=== PATIENT | female | born 1975 | race Caucasian/White ===

== ENCOUNTER 2016-08-01 05:37 | Emergency (ER) | payer BC ==
[~2016-08-01] VITALS: Ht 149.9 cm; Wt 56.4 kg
[~2016-08-01 05:37] MED LIST: ALPR0.5T PO; ASPI325T70 PO; CITA20TA9 PO; DEXT20TA2 PO; HYDR-971 PO; NAPR500T3 PO; TEMA15CA PO; TRAM100T PO; VENL150C6 PO; VENL37.5 PO
[2016-08-01] MEDS: ASPIRIN 81 MG TAB.CHEW PO ONE (06:30)
--- NOTE | 2016-08-01 06:38 | PHYS DOC ---
General Chief Complaint: anxiety Stated Complaint: HEAR RACING Time Seen by MD: 06:11 Source: patient Exam Limitations: no limitations Problems: History of Present Illness Initial Comments Pt is 40/F to ED c/o palpitations, chest pain, anxiety. Pt states for the past four days she's had constant palpitations, diffuse anterior chest pressure, feeling as if she cannot catch her breath. She has felt very anxious, states she stopped taking xanax last saturday and has h/o dependence. No seizure history, but wonders if sx related to withdrawal. No n/ v/arm or neck sx/dizziness/edema. No prearrival treatment, pt has had increased recent stressors. No SI/HI denies hallucinations. Timing/Duration: constant (4 days) Severity: moderate Associated Symptoms: chest pain, loss of appetite, malaise, shortness of breath Allergies: Coded Allergies: aripiprazole (Verified Allergy, Intermediate, 03/22/14) bupropion (Verified Allergy, Intermediate, 03/22/14) varenicline (Verified Allergy, Intermediate, 03/22/14) Past Medical History Medical History: CVA/TIA/stroke, other (kidney stones, factor V) Surgical History: other Psychosocial History: anxiety, depression Family History Significant Family History: cancer Social History Smoker: cigarettes Alcohol: none Drugs: none Review of Systems Constitutional: denies chills, denies diaphoresis, denies fever, malaise Respiratory: denies cough, shortness of breathdenies wheezing Cardiovascular: chest paindenies edema, palpitationsdenies syncope Gastrointestinal: denies abdominal pain, denies nausea, denies vomiting Musculoskeletal: denies back pain, denies joint swelling, denies neck pain Psychiatric/Neurological: denies headache, denies numbness, denies paresthesia Hematologic/Lymphatic: see HPI Physical Exam General Appearance: WD/WN, moderate distress (very anxious, tearful) Eyes: bilateral eye EOMI, bilateral eye PERRL, bilateral eye normal inspection Ear, Nose, Throat: hearing grossly normal, normal ENT inspection, normal pharynx Neck: non-tender, supple Respiratory: normal breath sounds, no respiratory distress Cardiovascular: normal peripheral pulses, regular rate, rhythm Gastrointestinal: non tender, soft Back: no CVA tenderness, no vertebral tenderness Extremities: normal range of motion, non-tender, normal inspection, no pedal edema, no calf tenderness 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 no acute ischemic changes CXR: no acute process Labs unremarkable. Sx > 12 hours, CE neg. Likely anxiety as sx resolved with benzos in ED. Nevertheless, she has risk factors and was advised to f/u with her doctor to discuss outpt cardiology eval. She has r/o for ACS, sx resolved with benzos I feel she is stable for discharge and close follow up. She expressed agreement/ understanding with treatment plan. Departure Time of Disposition: 08:54 Disposition: 01 HOME, SELF-CARE Diagnosis: Chest discomfort NOS, anxiety Condition: IMPROVED Patient Instructions: Anxiety and Panic Attacks, [id number], Chest Pain ( Nonspecific), [id number] Additional Instructions: Rest, no strenuous activity. Off work today. Rx: xanax 0.25mg #10 Follow up with your doctor this afternoon as scheduled. Return to ED with new or changing symptoms. EPHRAIM MAJANO DO Aug 01, 2016 06:37
[2016-08-01] MEDS: LORAZEPAM 2 MG/ML VIAL IV ONE (06:45)
[2016-08-01 06:52] LABS: BASO % 1 % (0-3); EOS # 0.1 x10^3/uL (0.0-0.7); EOS % 1 % (0-3); HEMATOCRIT 41.1 % (36.0-47.0); HEMOGLOBIN 13.7 g/dL (12.0-15.5); LYMPH # 2.7 x10^3/uL (1.0-4.8); LYMPH % 36 % (24-48); MEAN CORPUSCULAR HEMOGLOBIN 31 pg (25-35); MEAN CORPUSCULAR HGB CONC 33 g/dL (31-37); MEAN CORPUSCULAR VOLUME 93 fL (79-100); MONO # 0.4 x10^3/uL (0.0-1.1); MONO % 5 % (0-9); NEUT # 4.4 x10^3uL (1.8-7.7); NEUT % 58 % (31-73); PLATELET COUNT 262 x10^3/uL (140-400); RED BLOOD COUNT 4.42 x10^6/uL (3.50-5.40); RED CELL DISTRIBUTION WIDTH 13.6 % (11.5-14.5); WHITE BLOOD COUNT 7.6 x10^3/uL (4.0-11.0)
[2016-08-01 07:09] LABS: ALBUMIN 3.9 g/dL (3.4-5.0); ALBUMIN/GLOBULIN RATIO 1.2 (1.0-1.7); CALCIUM 8.7 mg/dL (8.5-10.1); CREATININE 0.8 mg/dL (0.6-1.0); GFR 78.7; POTASSIUM 3.8 mmol/L (3.5-5.1); TOTAL BILIRUBIN 0.4 mg/dL (0.2-1.0); TOTAL PROTEIN 7.1 g/dL (6.4-8.2)
--- NOTE | 2016-08-01 07:52 | EKG ---
[address] [address] Test Date: 2016-08-01 Test Time: 05:50:20 Pat Name: CODY CALABRESE Department: Room: Gender: F Beef Trimmer: : 1975 Requested By: EPHRAIM MAJANO Order Number: [id number] Reading MD: Measurements Intervals [place] Rate: 77 P: 48 SC: 154 QRS: 59 QRSD: 78 T: 51 QT: 362 QTc: 411 Interpretive Statements SINUS RHYTHM QRS(T) CONTOUR ABNORMALITY CONSIDER ANTEROSEPTAL MYOCARDIAL DAMAGE CONSIDER INFERIOR MYOCARDIAL DAMAGE POSSIBLY ABNORMAL ECG RI6.01 Unconfirmed report No previous ECG available for comparison
[2016-08-01] MEDS ORDERED: ALPR0.25 PO (08:56)
--- NOTE | 2016-08-01 09:25 | RAD ---
Portable chest, 08/01/2016: History: Chest pain Comparison is made to a study from 05/28/2016. The heart size and pulmonary vascularity are normal. No pulmonary infiltrates are seen. There is no evidence of pleural fluid. There is a minimal thoracic scoliosis. IMPRESSION: No acute cardiopulmonary abnormality is detected.
[2016-08-01 10:00] VITALS: BP 113/78
== END 2016-08-01 10:00 | disposition home or self-care (01) ==
LOC: ER 05:40
DX: R07.89 Other chest pain (principal); F41.9 Anxiety disorder, unspecified; F17.210 Nicotine dependence, cigarettes, uncomplicated; F32.9 Major depressive disorder, single episode, unspecified; Z86.73 Personal history of transient ischemic attack (TIA), and cerebral infarction without residual deficits; Z87.442 Personal history of urinary calculi; Z88.8 Allergy status to other drugs, medicaments and biological substances
CPT/HCPCS: 36415; 71010; 80053; 80320; 82550; 83690; 83880; 84484; 85027; 85379; 85610; 85730; 93005; 96374; 99285; J2060; G0480

== ENCOUNTER 2016-09-13 15:54 | Emergency (ER) | payer BC ==
[~2016-09-13 15:54] MED LIST changes: +ALPR0.25 PO
[2016-09-13] MEDS ORDERED: IV NORMAL SALINE 1,000ML 1,000 ML IV SCH (16:03)
[2016-09-13] MEDS ORDERED: 0.9 % SODIUM CHLORIDE 10 ML DISP.SYRIN. IV PRN (16:15)
--- NOTE | 2016-09-13 16:34 | PHYS DOC ---
Past History Past Medical History: Anxiety, Depression, Kidney Stones, TIA Additional Past Medical Histor: Migraine HEIN, Memory Loss prior stroke secondary to factor V Leiden Past Surgical History: Hysterectomy, Other Additional Past Surgical Histo: breast augmentation, tummy tuck. Smoking: Less than 1pk/day Alcohol Use: Occasionally (considering about 2 bottles of wine per week) Drug Use: None Adult General Chief Complaint Chief Complaint: RAPID HEART RATE HPI HPI Patient is a pleasant 40-year-old female with a history of anxiety and depression and remote history of suicidal ideation who presents with anxiety and palpitations ongoing for last 8 weeks. Patient had intermittent symptoms for last 8 weeks described as palpitations making her lightheaded with shortness of breath. She admits that she's been very anxious with these episodes and monitor her heart rate via an [place] I watch. She denies any real chest pain with the symptoms but they have become more frequent and increased in duration. She denies any nausea, vomiting, diarrhea, chills, abdominal pain with the symptoms. She describes some periods of blacking out or possibly as she describes seizures intermittently. She's been seen by neurology in the past with a negative EEG. There is nothing associated with her shortness breath and palpitations today she describes no evidence of syncope or near- syncope. Today's episode began while she was on. She denies any trauma at home and a homicidal suicidal ideations at this time. She denies any IV drug use alcohol withdrawal symptoms or recent medications. Review of Systems Review of Systems Constitutional: Denies fever or chills [] Eyes: Denies change in visual acuity, redness, or eye pain [] HENT: Denies nasal congestion or sore throat [] Respiratory: Denies cough or shortness of breath [] Cardiovascular: No additional information not addressed in HPI [] GI: Denies abdominal pain, nausea, vomiting, bloody stools or diarrhea [] : Denies dysuria or hematuria [] Musculoskeletal: Denies back pain or joint pain [] Integument: Denies rash or skin lesions [] Neurologic: She feels generally weak with no clear sensory changes Endocrine: Denies polyuria or polydipsia [] Current Medications Current Medications Current Medications Medications (Trade) Dose Ordered Sig/Alice Start Time Stop Time Status Last Admin Dose Admin Aspirin (Marce Aspirin) 325 mg 1X ONCE 09/13/16 16:15 09/13/16 16:16 UNV Sodium Chloride (Normal Saline Flush) 10 ml QSHIFT PRN 09/13/16 16:15 UNV Allergies Allergies Allergies Coded Allergies Type Severity Reaction Last Updated Verified aripiprazole Allergy Intermediate 03/22/14 Yes bupropion Allergy Intermediate 03/22/14 Yes varenicline Allergy Intermediate 03/22/14 Yes Physical Exam Physical Exam Constitutional: Well developed, well nourished,, non-toxic appearance. Patient very teary-eyed very anxious HENT: Normocephalic, atraumatic, bilateral external ears normal, oropharynx moist, no oral exudates, nose normal. [] Eyes: PERRLA, EOMI, conjunctiva normal, no discharge. [] Neck: Normal range of motion, no tenderness, supple, no stridor. [] Cardiovascular:Heart rate regular rhythm, no murmur or rubs Lungs & Thorax: Bilateral breath sounds clear to auscultation [] Abdomen: Bowel sounds normal, soft, no tenderness, no masses, no pulsatile masses.guarding rebound organomegaly [] Skin: Warm, dry, no erythema, no rash. [] Back: No tenderness, no CVA tenderness. [] Extremities: No tenderness, no cyanosis, no clubbing, ROM intact, no edema. [] Neurologic: Alert and oriented X 3, normal motor function, normal sensory function, no focal deficits noted. [] Psychologic: Affect normal, judgement normal, mood normal. [] Current Patient Data Vital Signs Vital Sign - Last 24 Hours 09/13/16 15:54 Temp 97.7 Pulse 78 Resp 18 Pulse Ox 97 O2 Delivery Room Air Lab Results Laboratory Tests Test 09/13/16 16:45 White Blood Count 7.3 x10^3/uL (4.0-11.0) Red Blood Count 4.58 x10^6/uL (3.50-5.40) Hemoglobin 14.7 g/dL (12.0-15.5) Hematocrit 42.8 % (36.0-47.0) Mean Corpuscular Volume 94 fL (79-100) Mean Corpuscular Hemoglobin 32 pg (25-35) Mean Corpuscular Hemoglobin Concent 34 g/dL (31-37) Red Cell Distribution Width 14.2 % (11.5-14.5) Platelet Count 256 x10^3/uL (140-400) Neutrophils (%) (Auto) 51 % (31-73) Lymphocytes (%) (Auto) 42 % (24-48) Monocytes (%) (Auto) 6 % (0-9) Eosinophils (%) (Auto) 1 % (0-3) Basophils (%) (Auto) 1 % (0-3) Neutrophils # (Auto) 3.7 x10^3uL (1.8-7.7) Lymphocytes # (Auto) 3.1 x10^3/uL (1.0-4.8) Monocytes # (Auto) 0.4 x10^3/uL (0.0-1.1) Eosinophils # (Auto) 0.1 x10^3/uL (0.0-0.7) Basophils # (Auto) 0.1 x10^3/uL (0.0-0.2) Urine Collection Type Unknown Urine Color Yellow Urine Clarity Hazy Urine pH 6.5 Urine Specific [place] 1.015 Urine Protein Trace (NEG-TRACE) Urine Glucose (UA) Neg mg/dL (NEG) Urine Ketones (Stick) 15 mg/dL (NEG) Urine Blood Trace (NEG) Urine Nitrite Neg (NEG) Urine Bilirubin Neg (NEG) Urine Urobilinogen Dipstick 0.2 mg/dL (0.2 mg/dL) Urine Leukocyte Esterase Neg (NEG) Urine RBC 6-10 /HPF (0-2) Urine WBC 1-4 /HPF (0-4) Urine Squamous Epithelial Cells Many /LPF Urine Bacteria Few /HPF (0-FEW) Sodium Level 141 mmol/L (136-145) Potassium Level 3.9 mmol/L (3.5-5.1) Chloride Level 103 mmol/L (98-107) Carbon Dioxide Level 28 mmol/L (21-32) Anion Gap 10 (6-14) Blood Urea Nitrogen 11 mg/dL (7-20) Creatinine 0.8 mg/dL (0.6-1.0) Estimated GFR (Cockcroft-Gault) 78.7 BUN/Creatinine Ratio 14 (6-20) Glucose Level 96 mg/dL (70-99) Calcium Level 9.1 mg/dL (8.5-10.1) Magnesium Level 2.1 mg/dL (1.8-2.4) Total Bilirubin 0.3 mg/dL (0.2-1.0) Aspartate Amino Transferase (AST) 20 U/L (15-37) Alanine Aminotransferase (ALT) 20 U/L (14-59) Alkaline Phosphatase 115 U/L (46-116) Creatine Kinase 61 U/L (26-192) Creatine Kinase MB (Mass) < 0.5 ng/mL (0.0-3.6) Creatine Kinase MB Relative Index 0.8 % (0-4) Troponin I Quantitative < 0.017 ng/mL (0-0.055) LU-Vcy-I-Type Natriuretic Peptide 79 pg/mL (0-124) Total Protein 7.7 g/dL (6.4-8.2) Albumin 4.3 g/dL (3.4-5.0) Albumin/Globulin Ratio 1.3 (1.0-1.7) Lipase 123 U/L (73-393) Urine Opiates Screen Neg (NEG) Urine Methadone Screen Neg (NEG) Urine Barbiturates Neg (NEG) Urine Phencyclidine Screen Neg (NEG) Urine Amphetamine/Methamphetamine Neg (NEG) Urine Benzodiazepines Screen Pos (NEG) Urine Cocaine Screen Neg (NEG) Urine Cannabinoids Screen Neg (NEG) Urine Ethyl Alcohol Neg (NEG) EKG EKG EKG timed at 4:50 PM 09/13/[address] Keene heart rate 71 normal sinus rhythm normal EKG with normal QRS normal P waves number UT interval number QTc. [] Radiology/Procedures Radiology/Procedures Signed PATIENT: CODY CALABRESE ACCOUNT: [id number] : 1975 LOCATION: ER AGE: 40 SEX: F EXAM STATUS: PRE ER ORD. PHYSICIAN: BENITA KEENE MD REASON: palpitations PROCEDURE: CT ANGIOGRAPHY CHEST PROCEDURE CT angiography chest with contrast HISTORY Palpitations TECHNIQUE Helical CT imaging of the chest with multiplanar 3D MIP reconstructions of the pulmonary arteries to detect emboli with 75 milliliters Omnipaque 300 intravenous contrast COMPARISON No prior FINDINGS Sub centimeter probable thyroid nodules the right has a calcifications. No pulmonary artery embolus. Heart size normal. Thoracic aorta and esophagus are unremarkable. No adenopathy in the chest. Bilateral subpectoral implants. 3 millimeter nodule right middle lobe axial image 61. No pneumothorax, pulmonary opacities or pleural effusions. Bones are unremarkable. IMPRESSION 1. No acute process. No pulmonary artery embolus. 2. 3 millimeter right middle lobe pulmonary nodule. In a low risk patient no followup is needed. In a high-risk patient followup imaging in 12 months would be advised per the Fleischner society 2017 guidelines. 3. There at least 2 thyroid nodules present 1 of which has a calcification, based on the multiplicity and presence of calcification further evaluation with sonography is advised. Electronically signed by: Julia Tejada MD (September 13, 2016 18:09:57) DICTATED AND SIGNED BY: JULIA TEJADA MD DATE: 09/13/16 1809 CC: BENITA KEENE MD; SILVIA WOLF MD ~ [] IMAGING REPORT Signed PATIENT: CODY CALABRESE ACCOUNT: [id number] : 1975 LOCATION: ER AGE: 40 SEX: F EXAM STATUS: PRE ER ORD. PHYSICIAN: BENITA KEENE MD REASON: palpitations PROCEDURE: CHEST PA & LATERAL Indication: Palpitations. Time of exam 1622 hours. FINDINGS: The heart size is normal. The lungs are clear. No pleural effusion or pneumothorax is identified. The pulmonary vascularity is normal. IMPRESSION: No acute abnormality detected. DICTATED AND SIGNED BY: VENESSA RANGEL MD DATE: 09/13/16 1630 CC: BENITA KEENE MD; SILVIA WOLF MD ~ Course & Med Decision Making Course & Med Decision Making Pertinent Labs and Imaging studies reviewed. (See chart for details) [] Presented with palpitations for last several days ago and progressively worse over last 8 weeks is very anxious does have a history of factor V Leiden deficiency. CT anginal chest negative, cardiac enzymes are negative, chest x- ray is negative, patient is a electrolytes are normal patient has no evidence of drugs in her system other than benzodiazepines. Patient differential diagnosis includes electrolyte abnormalities , pericarditis, pericardial effusion, mitral prolapse, acute coronary event, pneumonia, thyroid storm, hypothyroidism, drug abuse, cocaine and amphetamines medication side effects, toxidrome, and anxiety. Impression: Palpitations, anxiety Disposition discharge with follow-up primary care doctor for cardiology referral psychiatric referral. Asked to return for any increase in his symptoms and exposed 24 hours precautions given Dragon Disclaimer Dragon Disclaimer This chart was dictated in whole or in part using Voice Recognition software in a busy, high-work load, and often noisy Emergency Department environment. It may contain unintended and wholly unrecognized errors or omissions. Departure Departure: Impression: Primary Impression: Anxiety Additional Impressions: Dyspnea Palpitation Disposition: 01 HOME, SELF-CARE Condition: IMPROVED Referrals: SILVIA WOLF MD (PCP) Patient Instructions: Anxiety and Panic Attacks, Palpitations, Shortness of Breath Additional Instructions: His follow-up your primary care doctor for continued evaluation of her perceived palpitations, return immediate for any new symptoms or increased symptoms or fever any question concerns. Please return for any new chest pain or worsening nausea and vomiting with chest pain or you cannot tolerate her by mouth medications. Scripts Lorazepam (ATIVAN) 1 Mg Tablet 1 MG PO BID for 7 Days, #14 TAB Prov: BENITA KEENE MD 09/13/16 Problem Qualifiers BENITA KEENE MD September 13, 2016 16:34
[2016-09-13] MEDS ORDERED: LORazepam 1 MG TABLET PO ONE (16:45)
[2016-09-13] MEDS ORDERED: ASPIRIN 325 MG TABLET PO ONE (16:45)
--- NOTE | 2016-09-13 17:02 | EKG ---
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
[2016-09-13 17:04] LABS: BASO # 0.1 x10^3/uL (0.0-0.2); BASO % 1 % (0-3); EOS # 0.1 x10^3/uL (0.0-0.7); EOS % 1 % (0-3); HEMATOCRIT 42.8 % (36.0-47.0); HEMOGLOBIN 14.7 g/dL (12.0-15.5); LYMPH # 3.1 x10^3/uL (1.0-4.8); LYMPH % 42 % (24-48); MEAN CORPUSCULAR HEMOGLOBIN 32 pg (25-35); MEAN CORPUSCULAR HGB CONC 34 g/dL (31-37); MEAN CORPUSCULAR VOLUME 94 fL (79-100); MONO # 0.4 x10^3/uL (0.0-1.1); MONO % 6 % (0-9); NEUT # 3.7 x10^3uL (1.8-7.7); NEUT % 51 % (31-73); PLATELET COUNT 256 x10^3/uL (140-400); RED BLOOD COUNT 4.58 x10^6/uL (3.50-5.40); RED CELL DISTRIBUTION WIDTH 14.2 % (11.5-14.5); WHITE BLOOD COUNT 7.3 x10^3/uL (4.0-11.0)
[2016-09-13] MEDS ORDERED: IOHEXOL 300 MG/ML 75 ML VIAL. IV ONE (17:10)
[2016-09-13 17:16] LABS: AMPHETAMINE/METHAMPHETAMINE NEG (NEG); BARBITURATES NEG (NEG); BENZODIAZEPINES POS (NEG); CANNABINOIDS NEG (NEG); COCAINE NEG (NEG); METHADONE NEG (NEG); OPIATES NEG (NEG); PHENCYCLIDINE NEG (NEG)
[2016-09-13 17:25] LABS: ALBUMIN 4.3 g/dL (3.4-5.0); ALBUMIN/GLOBULIN RATIO 1.3 (1.0-1.7); ALK PHOS 115 U/L (46-116); ALT (SGPT) 20 U/L (14-59); ANION GAP 10 (6-14); AST (SGOT) 20 U/L (15-37); BLOOD UREA NITROGEN 11 mg/dL (7-20); BUN/CREATININE RATIO 14 (6-20); CALCIUM 9.1 mg/dL (8.5-10.1); CARBON DIOXIDE 28 mmol/L (21-32); CHLORIDE 103 mmol/L (98-107); CREATINE KINASE 61 U/L (26-192); CREATININE 0.8 mg/dL (0.6-1.0); GFR 78.7; GLUCOSE 96 mg/dL (70-99); LIPASE 123 U/L (73-393); MAGNESIUM 2.1 mg/dL (1.8-2.4); SODIUM 141 mmol/L (136-145); TOTAL BILIRUBIN 0.3 mg/dL (0.2-1.0); TOTAL PROTEIN 7.7 g/dL (6.4-8.2)
[2016-09-13 17:26] LABS: POTASSIUM 3.9 mmol/L (3.5-5.1)
[2016-09-13 17:34] LABS: BILIRUBIN,URINE NEG (NEG); CLARITY,URINE HAZY; COLOR,URINE YELLOW; GLUCOSE,URINE NEG (NEG)
[2016-09-13 17:36] LABS: BACTERIA,URINE FEW /HPF (0-FEW); NITRITE,URINE NEG (NEG); SQUAMOUS EPITHELIAL CELL,UR MANY /LPF; UROBILINOGEN,URINE 0.2 mg/dL (0.2 mg/dL)
--- NOTE | 2016-09-13 18:11 | RAD ---
PROCEDURE CT angiography chest with contrast HISTORY Palpitations TECHNIQUE Helical CT imaging of the chest with multiplanar 3D MIP reconstructions of the pulmonary arteries to detect emboli with 75 milliliters Omnipaque 300 intravenous contrast COMPARISON No prior FINDINGS Sub centimeter probable thyroid nodules the right has a calcifications. No pulmonary artery embolus. Heart size normal. Thoracic aorta and esophagus are unremarkable. No adenopathy in the chest. Bilateral subpectoral implants. 3 millimeter nodule right middle lobe axial image 61. No pneumothorax, pulmonary opacities or pleural effusions. Bones are unremarkable. IMPRESSION 1. No acute process. No pulmonary artery embolus. 2. 3 millimeter right middle lobe pulmonary nodule. In a low risk patient no followup is needed. In a high-risk patient followup imaging in 12 months would be advised per the Fleischner society 2017 guidelines. 3. There at least 2 thyroid nodules present 1 of which has a calcification, based on the multiplicity and presence of calcification further evaluation with sonography is advised. Electronically signed by: Tim Tejada MD (September 13, 2016 18:09:57)
[2016-09-13] MEDS ORDERED: LORA-434 PO (18:25)
[2016-09-13 18:38] VITALS: BP 130/68
== END 2016-09-13 18:40 | disposition home or self-care (01) ==
LOC: ER 15:54
DX: F41.9 Anxiety disorder, unspecified (principal); R00.2 Palpitations; R06.02 Shortness of breath; F32.9 Major depressive disorder, single episode, unspecified; G43.909 Migraine, unspecified, not intractable, without status migrainosus; Z87.442 Personal history of urinary calculi; Z86.73 Personal history of transient ischemic attack (TIA), and cerebral infarction without residual deficits; Z88.8 Allergy status to other drugs, medicaments and biological substances
CPT/HCPCS: 36415; 71020; 71275; 80053; 80305; 81001; 82553; 83690; 83735; 83880; 84443; 84484; 84703; 85027; 85379; 93005; 96360; 96361; 99285; Q9967; 81025; G0481; J7030

== ENCOUNTER → 2017-09-10 | Outpatient (CLI) | payer BC ==
[~2017-09-10] MED LIST changes: +LORA-434 PO; +NAPR-514 PO; -NAPR500T3 PO; -TRAM100T PO; +TRAM100T30 PO
--- NOTE | 2017-09-13 11:21 | RAD ---
DATE: 09/10/2017 EXAM: MAMMO MARTHA SCREENING BILATERAL HISTORY: Breast screening, breast implants COMPARISON: 11/08/2014 This study was interpreted with the benefit of Computerized Aided Detection (CAD). The breast parenchyma shows scattered fibroglandular densities. Breast parenchyma level B. FINDINGS: 2-D routine and implant exclusion views of both breasts were obtained in CC and MLO projections. Implant exclusion 3-D tomosynthesis imaging was also performed in CC and MLO projections. The breast implants appear unchanged. A small benign-appearing lymph node type density is seen laterally in the left breast. No suspicious breast densities are seen. Minimal benign type calcifications are present. No suspicious microcalcifications have developed. Benign-appearing lymph node type densities in the axillary regions appear unchanged. IMPRESSION: There is no mammographic evidence of malignancy in either breast. BI-RADS CATEGORY: 2 BENIGN FINDING(S) RECOMMENDED FOLLOW-UP: 12M 12 MONTH FOLLOW-UP PQRS compliance statement: Patient information was entered into a reminder system with a target due date for the next mammogram. Mammography is a sensitive method for finding small breast cancers, but it does not detect them all and is not a substitute for careful clinical examination. A negative mammogram does not negate a clinically suspicious finding and should not result in delay in biopsying a clinically suspicious abnormality. "Our facility is accredited by the [employer] Mammography Program."
== END | disposition home or self-care (01) ==
LOC: MAMMO 09:52
PROVIDERS: ATTEND Physician Assistant
DX: Z12.31 Encounter for screening mammogram for malignant neoplasm of breast (principal); F17.210 Nicotine dependence, cigarettes, uncomplicated
CPT/HCPCS: 77063; 77067

== ENCOUNTER 2017-09-18 09:58 | Emergency (ER) | payer BC ==
[~2017-09-18] VITALS: Ht 149.9 cm; Wt 64.4 kg
[2017-09-18] MEDS ORDERED: ONDANSETRON PF 4 MG/2 ML VIAL. IV ONE (10:30)
[2017-09-18] MEDS ORDERED: IV NORMAL SALINE 1,000ML 1,000 ML IV ONE (10:30)
[2017-09-18 10:38] LABS: BASO # 0.1 x10^3/uL (0.0-0.2); BASO % 1 % (0-3); EOS # 0.1 x10^3/uL (0.0-0.7); EOS % 1 % (0-3); HEMATOCRIT 37.4 % (36.0-47.0); HEMOGLOBIN 12.7 g/dL (12.0-15.5); LYMPH # 2.8 x10^3/uL (1.0-4.8); LYMPH % 28 % (24-48); MEAN CORPUSCULAR HEMOGLOBIN 32 pg (25-35); MEAN CORPUSCULAR HGB CONC 34 g/dL (31-37); MEAN CORPUSCULAR VOLUME 95 fL (79-100); MONO # 0.7 x10^3/uL (0.0-1.1); MONO % 7 % (0-9); NEUT # 6.5 x10^3uL (1.8-7.7); NEUT % 64 % (31-73); PLATELET COUNT 296 x10^3/uL (140-400); RED BLOOD COUNT 3.93 x10^6/uL (3.50-5.40); RED CELL DISTRIBUTION WIDTH 13.1 % (11.5-14.5); WHITE BLOOD COUNT 10.2 x10^3/uL (4.0-11.0)
[2017-09-18 10:50] LABS: ALBUMIN 3.4 g/dL (3.4-5.0); ALK PHOS 153 U/L (46-116); ALT (SGPT) 53 U/L (14-59); ANION GAP 9 (6-14); AST (SGOT) 58 U/L (15-37); BLOOD UREA NITROGEN 15 mg/dL (7-20); CALCIUM 8.3 mg/dL (8.5-10.1); CARBON DIOXIDE 26 mmol/L (21-32); CHLORIDE 106 mmol/L (98-107); CREATININE 0.8 mg/dL (0.6-1.0); GFR 78.3; GLUCOSE 94 mg/dL (70-99); LIPASE 197 U/L (73-393); POTASSIUM 3.9 mmol/L (3.5-5.1); PREG TEST PT QUAL NEGATIVE (NEG); SODIUM 141 mmol/L (136-145); TOTAL BILIRUBIN 0.1 mg/dL (0.2-1.0); TOTAL PROTEIN 6.8 g/dL (6.4-8.2)
[2017-09-18 10:54] LABS: DIRECT BILIRUBIN < 0.1 mg/dL (0.0-0.2)
[2017-09-18] MEDS ORDERED: ONDANSETRON ODT 4 MG TAB.RAPDIS PO ONE (11:00)
[2017-09-18] MEDS ORDERED: IOHEXOL 300 MG/ML 75 ML VIAL. IV ONE (11:30)
--- NOTE | 2017-09-18 11:39 | PHYS DOC ---
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 Past Surgical History uteteral revision as a baby. Smoking: Less than 1pk/day Additional Smoking Information: .5-1 pack/day Alcohol Use: Occasionally Drug Use: None Adult General Chief Complaint Chief Complaint: ABDOMINAL PAIN HPI HPI 41-year-old female presenting to the emergency department today with left lower quadrant abdominal pain which she rates as a 6 out of 10 mildly radiates to the back and is not associated with what he stools. She denies fevers chills. Her pain started this morning. She was seen at her PCPs office who referred her here for further treatment and care. She had a bowel movement last is morning. The pain is a sharp shooting pain which comes and goes. She has a history of a hysterectomy and a ureteral revision as a baby with fistula formation that was repaired. Review of systems is negative for chest pain shortness of breath fevers chills vomiting. She denies constipation or blood in her stools. All other review of systems is negative unless otherwise noted in history of present illness. ED course: 41-year-old female presenting to the emergency department today with left lower quadrant abdominal pain. On arrival vital signs are unremarkable. On examination she is well-appearing and nontoxic appearing. Heart and lungs are within normal limits. Abdomen is soft and nontender to palpation left lower quadrant without rebound tenderness or guarding. Negative McBurney's point. Negative Graf sign. IV established. IV fluids nausea and pain medications administered in the emergency department and blood work was sent. CT abdomen pelvis with IV contrast utilized. CT abdomen pelvis shows acute diverticulitis. We will initiate Cipro and Flagyl to follow up with her doctor in the next few days.The patient has been examined and was not found to have an emergency medical condition. The patient was then discharged home in stable condition to follow up with their primary care physician over the next 2-3 days. They were to return if their symptoms worsened or if they were concerned for any reason. [id number] discharge instructions and return precautions were given. Patient' s questions were answered to their satisfaction. Patient is comfortable with plan. Review of Systems Review of Systems SEE ABOVE. Current Medications Current Medications Current Medications Medications (Trade) Dose Ordered Sig/Alice Start Time Stop Time Status Last Admin Dose Admin Fentanyl Citrate (Fentanyl 2ml Vial) 50 mcg PRN Q30MIN PRN 09/18/17 10:30 09/18/17 10:38 50 MCG Iohexol (Omnipaque 300 Mg/ml) 75 ml 1X ONCE 09/18/17 11:30 09/18/17 11:31 DC 09/18/17 11:31 75 ML Ondansetron HCl (Zofran Odt) 4 mg 1X ONCE 09/18/17 11:00 09/18/17 11:01 DC 09/18/17 10:36 4 MG Ondansetron HCl (Zofran) 4 mg 1X ONCE 09/18/17 10:30 09/18/17 10:31 DC Sodium Chloride 1,000 ml @ 1,000 mls/hr 1X ONCE 09/18/17 10:30 09/18/17 11:29 DC 09/18/17 10:36 1,000 MLS/HR Allergies Allergies Allergies Coded Allergies Type Severity Reaction Last Updated Verified aripiprazole Allergy Intermediate 03/22/14 Yes bupropion Allergy Intermediate 03/22/14 Yes varenicline Allergy Intermediate 03/22/14 Yes Physical Exam Physical Exam SEE ABOVE Constitutional: Well developed, well nourished, no acute distress, non-toxic appearance. HENT: Normocephalic, atraumatic, bilateral external ears normal, oropharynx moist, no oral exudates, nose normal. [] Eyes: PERRLA, EOMI, conjunctiva normal, no discharge. Neck: Normal range of motion, no tenderness, supple, no stridor. [] Cardiovascular:Heart rate regular rhythm, no murmur Lungs & Thorax: Bilateral breath sounds clear to auscultation [] Abdomen: Bowel sounds normal, soft, no masses, no pulsatile masses. see above Skin: Warm, dry, no erythema, no rash. [] Back: No tenderness, no CVA tenderness. [] Extremities: No tenderness, no cyanosis, no clubbing, ROM intact, no edema. Neurologic: Alert and oriented X 3, normal motor function, normal sensory function, no focal deficits noted. Psychologic: Affect normal, judgement normal, mood normal. [] Current Patient Data Vital Signs Vital Signs Date Time Temp Pulse Resp B/P (MAP) Pulse Ox O2 Delivery O2 Flow Rate FiO2 09/18/17 11:24 71 16 115/81 (92) 98 Room Air 09/18/17 10:21 97.6 Lab Results Laboratory Tests Test 09/18/17 10:22 White Blood Count 10.2 x10^3/uL (4.0-11.0) Red Blood Count 3.93 x10^6/uL (3.50-5.40) Hemoglobin 12.7 g/dL (12.0-15.5) Hematocrit 37.4 % (36.0-47.0) Mean Corpuscular Volume 95 fL (79-100) Mean Corpuscular Hemoglobin 32 pg (25-35) Mean Corpuscular Hemoglobin Concent 34 g/dL (31-37) Red Cell Distribution Width 13.1 % (11.5-14.5) Platelet Count 296 x10^3/uL (140-400) Neutrophils (%) (Auto) 64 % (31-73) Lymphocytes (%) (Auto) 28 % (24-48) Monocytes (%) (Auto) 7 % (0-9) Eosinophils (%) (Auto) 1 % (0-3) Basophils (%) (Auto) 1 % (0-3) Neutrophils # (Auto) 6.5 x10^3uL (1.8-7.7) Lymphocytes # (Auto) 2.8 x10^3/uL (1.0-4.8) Monocytes # (Auto) 0.7 x10^3/uL (0.0-1.1) Eosinophils # (Auto) 0.1 x10^3/uL (0.0-0.7) Basophils # (Auto) 0.1 x10^3/uL (0.0-0.2) Sodium Level 141 mmol/L (136-145) Potassium Level 3.9 mmol/L (3.5-5.1) Chloride Level 106 mmol/L (98-107) Carbon Dioxide Level 26 mmol/L (21-32) Anion Gap 9 (6-14) Blood Urea Nitrogen 15 mg/dL (7-20) Creatinine 0.8 mg/dL (0.6-1.0) Estimated GFR (Cockcroft-Gault) 78.3 Glucose Level 94 mg/dL (70-99) Calcium Level 8.3 mg/dL (8.5-10.1) L Total Bilirubin 0.1 mg/dL (0.2-1.0) L Direct Bilirubin < 0.1 mg/dL (0.0-0.2) Aspartate Amino Transferase (AST) 58 U/L (15-37) H Alanine Aminotransferase (ALT) 53 U/L (14-59) Alkaline Phosphatase 153 U/L (46-116) H Total Protein 6.8 g/dL (6.4-8.2) Albumin 3.4 g/dL (3.4-5.0) Lipase 197 U/L (73-393) Serum Test, Qualitative Negative (NEG) EKG EKG [] Radiology/Procedures Radiology/Procedures [] Course & Med Decision Making Course & Med Decision Making Pertinent Labs and Imaging studies reviewed. (See chart for details) [] Dragon Disclaimer Dragon Disclaimer This electronic medical record was generated, in whole or in part, using a voice recognition dictation system. Departure Departure: Impression: Primary Impression: Diverticulitis Additional Impression: Abdominal pain Disposition: 01 HOME, SELF-CARE Condition: STABLE Referrals: SILVIA WOLF MD (PCP) Patient Instructions: Abdominal Pain, Diverticulitis Additional Instructions: Thank you for allowing us to participate in your care today. Followup with your primary care physician in 3 days if your symptoms do not improve. Call your Primary Doctor tomorrow and inform them of your visit today. If you do not have a primary care provider you can ask for a list of our primary care providers. Return to the emergency department you have any new or concerning findings. This should be evaluated by the primary care physician and any necessary consulting services for continued management within a few days after discharge. Return to emergency room if you have any new or concerning symptoms including but not limited to fever, chills, nausea, vomiting, intractable pain, any new rashes, chest pain, shortness of air, uncontrolled bleeding, difficulty breathing, and/or vision loss. If at any time, you are having difficulty getting into your primary care doctor or a specialist, return to the emergency department. You may have been prescribed medication that can change in your level of thinking and ability to operate machinery. These medications include hydrocodone and Ativan. Also, Benadryl has been known to do this as well. Be sure to check with your pharmacist and ask if the medications you've prescribed can affect your level of consciousness. I recommend not operating heavy machinery or driving while on medication such as these. Scripts Metronidazole (FLAGYL) 500 Mg Tablet 1 TAB PO BID for 7 Days, #14 TAB 0 Refills Prov: LAURA BABB MD 09/18/17 Ciprofloxacin Hcl (CIPRO) 500 Mg Tablet 1 TAB PO BID, #20 TAB Prov: LAURA BABB MD 09/18/17 Problem Qualifiers LAURA BABB MD September 18, 2017 11:39
--- NOTE | 2017-09-18 12:04 | RAD ---
Indication: Left lower quadrant abdominal pain. Technique: Axial images and coronal and sagittal reformatted images are provided. 75 mL of intravenous Omnipaque 300 was administered without complication. Comparison is from June 29, 2016. One or more of the following individualized dose reduction techniques were utilized for this examination: 1. Automated exposure control 2. Adjustment of the mA and/or kV according to patient size 3. Use of iterative reconstruction technique Findings: There is dependent atelectasis. There is no pleural effusion. Heart is not enlarged. Breast implants are noted. Liver is unremarkable. Gallbladder is normal in appearance. Spleen is not enlarged. Pancreas and adrenals are unremarkable. Kidneys are symmetrically perfused. Aorta is normal caliber with minimal atheromatous disease. There is no dilated small bowel loop or air-fluid level. There is a normal appendix. There is inflammatory stranding along the proximal sigmoid colon with diverticula that appears thickened in this region. There is no abscess or free air. Bladder is unremarkable. Uterus is presumed absent. Calcified phleboliths are noted. IMPRESSION: 1. Findings of acute diverticulitis involving the proximal sigmoid colon. No evidence of abscess or perforation. Electronically signed by: Sd Greer MD (09/18/2017 12:00 PM) [id number]
[2017-09-18] MEDS ORDERED: METR500T PO (12:08)
[2017-09-18] MEDS ORDERED: CIPR500T94 PO (12:08)
[2017-09-18 12:32] LABS: BILIRUBIN,URINE NEG (NEG); CLARITY,URINE CLEAR; COLOR,URINE YELLOW; GLUCOSE,URINE NEG (NEG)
[2017-09-18 12:33] LABS: BACTERIA,URINE FEW /HPF (0-FEW); NITRITE,URINE NEG (NEG); SQUAMOUS EPITHELIAL CELL,UR FEW /LPF; UROBILINOGEN,URINE 0.2 mg/dL (0.2 mg/dL)
[2017-09-18] MEDS ORDERED: HYDR-2758 PO (13:02)
[2017-09-18] MEDS ORDERED: HYDROcodone/APAP 5/325MG 1 TAB TABLET PO ONE (13:15)
[2017-09-18 13:17] VITALS: BP 104/71
== END 2017-09-18 13:21 | disposition home or self-care (01) ==
LOC: ER 09:58
DX: K57.32 Diverticulitis of large intestine without perforation or abscess without bleeding (principal); G43.909 Migraine, unspecified, not intractable, without status migrainosus; F17.210 Nicotine dependence, cigarettes, uncomplicated; Z87.442 Personal history of urinary calculi; Z86.73 Personal history of transient ischemic attack (TIA), and cerebral infarction without residual deficits; Z90.710 Acquired absence of both cervix and uterus; Z88.1 Allergy status to other antibiotic agents; Z88.4 Allergy status to anesthetic agent; Z88.8 Allergy status to other drugs, medicaments and biological substances
CPT/HCPCS: 36415; 74177; 80048; 80076; 81001; 83690; 84703; 85025; 96361; 96374; 96376; 99285; J3010; Q0162; Q9967; J7030

== ENCOUNTER 2017-09-30 08:48 | Emergency (ER) | payer BC ==
[~2017-09-30] VITALS: Ht 149.9 cm; Wt 63.5 kg
[~2017-09-30 08:48] MED LIST changes: +CIPR500T94 PO; +HYDR-2758 PO; +METR500T PO
[2017-09-30] MEDS ORDERED: IV NORMAL SALINE 1,000ML 1,000 ML IV SCH (09:30)
[2017-09-30] MEDS ORDERED: HYDROmorphone PF 1 MG/ML DISP.SYRIN IV/SQ PRN (09:30)
--- NOTE | 2017-09-30 09:40 | PHYS DOC ---
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 Smoking: Less than 1pk/day Alcohol Use: Occasionally Drug Use: None Adult General Chief Complaint Chief Complaint: ABDOMINAL PAIN HPI HPI 41-year-old female presents with periumbilical abdominal pain. The patient was recently treated for diverticulitis. She took all of her medications and starting to feel better. Yesterday and today, she developed a central abdominal pain that she describes as sharp and 7 out of 10. The pain seems to radiate through to her lower back. She further admits to increased urinary frequency but denies dysuria. She has a history of kidney stones in the past. She denies hematuria. She denies fever, chills, nausea, vomiting. Her stools have been loose, but returning to normal. No blood in her stools. She has not been doing any unusual physical activity. Review of Systems Review of Systems Constitutional: Denies fever or chills [] Eyes: Denies change in visual acuity, redness, or eye pain [] HENT: Denies nasal congestion or sore throat [] Respiratory: Denies cough or shortness of breath [] Cardiovascular: No additional information not addressed in HPI [] GI: Abdominal pain[] : Increased urinary frequency[] Musculoskeletal: Denies back pain or joint pain [] Integument: Denies rash or skin lesions [] Neurologic: Denies headache, focal weakness or sensory changes [] Endocrine: Denies polyuria or polydipsia [] All other systems were reviewed and found to be within normal limits, except as documented in this note. Current Medications Current Medications Current Medications Medications (Trade) Dose Ordered Sig/Alice Start Time Stop Time Status Last Admin Dose Admin Hydromorphone HCl (Dilaudid) 0.5 mg PRN Q15MIN PRN 09/30/17 09:30 10/01/17 09:29 UNV Prochlorperazine Edisylate (Compazine) 5 mg 1X ONCE 09/30/17 09:30 09/30/17 09:31 UNV Sodium Chloride 1,000 ml @ 1,000 mls/hr Q1H 09/30/17 09:30 09/30/17 10:29 UNV Allergies Allergies Allergies Coded Allergies Type Severity Reaction Last Updated Verified aripiprazole Allergy Intermediate 03/22/14 Yes bupropion Allergy Intermediate 03/22/14 Yes varenicline Allergy Intermediate 03/22/14 Yes Physical Exam Physical Exam Constitutional: Well developed, well nourished, no acute distress, non-toxic appearance. [] HENT: Normocephalic, atraumatic, bilateral external ears normal, oropharynx moist, no oral exudates, nose normal. [] Eyes: PERRLA, EOMI, conjunctiva normal, no discharge. [] Neck: Normal range of motion, no tenderness, supple, no stridor. [] Cardiovascular:Heart rate regular rhythm, no murmur [] Lungs & Thorax: Bilateral breath sounds clear to auscultation [] Abdomen: Mild periumbilical tenderness, soft, and nondistended[] Skin: Warm, dry, no erythema, no rash. [] Back: No tenderness, no CVA tenderness. [] Extremities: No tenderness, no cyanosis, no clubbing, ROM intact, no edema. [] Neurologic: Alert and oriented X 3, normal motor function, normal sensory function, no focal deficits noted. [] Psychologic: Affect normal, judgement normal, mood normal. [] Current Patient Data Vital Signs Vital Signs Date Time Temp Pulse Resp B/P (MAP) Pulse Ox O2 Delivery O2 Flow Rate FiO2 09/30/17 08:48 98.4 85 18 99 Room Air EKG EKG [] Radiology/Procedures Radiology/Procedures CT ABDOMEN PELVIS WO CONTRAST dated 09/30/2017 10:36 AM Indication: Bilateral flank pain.History of renal stones. Pain bilateral flank, hematuria six hours. Comparison: 09/18/2017. Technique: Contiguous axial imaging the abdomen and pelvis performed without the administration of IV or oral contrast using renal stone protocol. One or more of the following individualized dose reduction techniques were utilized for this examination: 1. Automated exposure control 2. Adjustment of the mA and/or kV according to patient size 3. Use of iterative reconstruction technique Findings: Both kidneys are symmetric in size and attenuation. No calcific renal or ureteral stone. No hydronephrosis. No inflammatory changes in the perinephric fat. Solid abdominal viscera not well evaluated in the absence of contrast material. No apparent attenuation abnormality of the liver or spleen. Pancreas, adrenal glands and gallbladder are unremarkable. Unopacified GI tract is normal in caliber and contour. No focal bowel wall thickening. No inflammatory stranding in the mesentery. The appendix is normal in caliber. No ascites or lymphadenopathy. There are a few scattered diverticula throughout the colon. Abdominal aorta normal in caliber. Images of pelvis a nondistended urinary bladder. No calcific bladder stone. The uterus is surgically absent. No free fluid or lymphadenopathy. Bone windows show no acute findings. Limited images of lung bases are grossly clear. Minimal dependent atelectasis in the lower lobes. IMPRESSION: 1. No evidence of renal stone or hydronephrosis. 2. Normal appendix. 3. Diverticulosis with no evidence of acute diverticulitis. 4. Status post hysterectomy. Electronically signed by: Nelson Jacobo MD (09/30/2017 11:15 AM) [facility] [place] [] Course & Med Decision Making Course & Med Decision Making Pertinent Labs and Imaging studies reviewed. (See chart for details) Patient's labs are unremarkable. Her CT abdomen and pelvis is unremarkable. I'm unsure was causing her abdominal pain. She does not a kidney stone. She does not have a UTI. [] Dragon Disclaimer Dragon Disclaimer This electronic medical record was generated, in whole or in part, using a voice recognition dictation system. Departure Departure: Referrals: SILVIA WOLF MD (PCP) HOMA ABEL DO September 30, 2017 09:40
[2017-09-30] MEDS ORDERED: PROCHLORPERAZINE 10 MG/2 ML VIAL. IV ONE (09:45)
[2017-09-30 10:06] LABS: BILIRUBIN,URINE NEG (NEG); CLARITY,URINE HAZY; COLOR,URINE AMBER; GLUCOSE,URINE NEG (NEG)
[2017-09-30 10:07] LABS: AMORPHOUS SEDIMENT,UR PRESENT /HPF; BACTERIA,URINE FEW /HPF (0-FEW); NITRITE,URINE NEG (NEG); SQUAMOUS EPITHELIAL CELL,UR MOD /LPF; UROBILINOGEN,URINE 0.2 mg/dL (0.2 mg/dL); YEAST,URINE PRESENT /HPF
[2017-09-30 10:08] LABS: BASO # 0.1 x10^3/uL (0.0-0.2); BASO % 1 % (0-3); EOS # 0.2 x10^3/uL (0.0-0.7); EOS % 1 % (0-3); HEMATOCRIT 37.9 % (36.0-47.0); HEMOGLOBIN 12.9 g/dL (12.0-15.5); LYMPH # 2.5 x10^3/uL (1.0-4.8); LYMPH % 23 % (24-48); MEAN CORPUSCULAR HEMOGLOBIN 32 pg (25-35); MEAN CORPUSCULAR HGB CONC 34 g/dL (31-37); MEAN CORPUSCULAR VOLUME 94 fL (79-100); MONO # 0.7 x10^3/uL (0.0-1.1); MONO % 6 % (0-9); NEUT # 7.6 x10^3uL (1.8-7.7); NEUT % 69 % (31-73); PLATELET COUNT 428 x10^3/uL (140-400); RED BLOOD COUNT 4.04 x10^6/uL (3.50-5.40); RED CELL DISTRIBUTION WIDTH 13.1 % (11.5-14.5)
[2017-09-30 10:36] LABS: CALCIUM 9.3 mg/dL (8.5-10.1); CREATININE 0.8 mg/dL (0.6-1.0); GFR 78.3; POTASSIUM 3.7 mmol/L (3.5-5.1)
--- NOTE | 2017-09-30 11:18 | RAD ---
CT ABDOMEN PELVIS WO CONTRAST dated 09/30/2017 10:36 AM Indication: Bilateral flank pain.History of renal stones. Pain bilateral flank, hematuria six hours. Comparison: 09/18/2017. Technique: Contiguous axial imaging the abdomen and pelvis performed without the administration of IV or oral contrast using renal stone protocol. One or more of the following individualized dose reduction techniques were utilized for this examination: 1. Automated exposure control 2. Adjustment of the mA and/or kV according to patient size 3. Use of iterative reconstruction technique Findings: Both kidneys are symmetric in size and attenuation. No calcific renal or ureteral stone. No hydronephrosis. No inflammatory changes in the perinephric fat. Solid abdominal viscera not well evaluated in the absence of contrast material. No apparent attenuation abnormality of the liver or spleen. Pancreas, adrenal glands and gallbladder are unremarkable. Unopacified GI tract is normal in caliber and contour. No focal bowel wall thickening. No inflammatory stranding in the mesentery. The appendix is normal in caliber. No ascites or lymphadenopathy. There are a few scattered diverticula throughout the colon. Abdominal aorta normal in caliber. Images of pelvis a nondistended urinary bladder. No calcific bladder stone. The uterus is surgically absent. No free fluid or lymphadenopathy. Bone windows show no acute findings. Limited images of lung bases are grossly clear. Minimal dependent atelectasis in the lower lobes. IMPRESSION: 1. No evidence of renal stone or hydronephrosis. 2. Normal appendix. 3. Diverticulosis with no evidence of acute diverticulitis. 4. Status post hysterectomy. Electronically signed by: Nelson Jacobo MD (09/30/2017 11:15 AM) [facility] [place]
[2017-09-30] MEDS ORDERED: HYDR-971 PO (12:34)
[2017-09-30 12:40] VITALS: BP 107/71
[2017-09-30] MEDS ORDERED: LIDO:MAALOX 1:1 20 ML SINGLE DOSE. PO ONE (13:00)
== END 2017-09-30 12:50 | disposition home or self-care (01) ==
LOC: ER 08:48
DX: R10.33 Periumbilical pain (principal); R35.0 Frequency of micturition; G43.909 Migraine, unspecified, not intractable, without status migrainosus; F17.200 Nicotine dependence, unspecified, uncomplicated; Z87.442 Personal history of urinary calculi; Z86.73 Personal history of transient ischemic attack (TIA), and cerebral infarction without residual deficits; Z90.710 Acquired absence of both cervix and uterus; Z88.1 Allergy status to other antibiotic agents; Z88.4 Allergy status to anesthetic agent; Z88.8 Allergy status to other drugs, medicaments and biological substances
CPT/HCPCS: 36415; 74176; 80048; 81001; 85025; 87086; 96374; 96375; 99285; J0780; J1170; 96361; J7030

== ENCOUNTER 2017-12-10 11:08 | Emergency (ER) | payer BC ==
[~2017-12-10] VITALS: Ht 149.9 cm; Wt 67.7 kg
[~2017-12-10 11:08] MED LIST changes: +LORA-254 PO; -LORA-434 PO
[2017-12-10] MEDS ORDERED: IV NORMAL SALINE 1,000ML 1,000 ML IV SCH (11:37)
[2017-12-10] MEDS ORDERED: ONDANSETRON PF 4 MG/2 ML VIAL. ONE (11:52)
[2017-12-10] MEDS ORDERED: KETOROLAC 60 MG/2 ML VIAL. IM ONE (11:52)
[2017-12-10] MEDS ORDERED: KETOROLAC 30 MG/ML VIAL. ONE (11:54)
[2017-12-10 12:02] LABS: BASO # 0.1 x10^3/uL (0.0-0.2); BASO % 1 % (0-3); EOS # 0.1 x10^3/uL (0.0-0.7); EOS % 2 % (0-3); HEMATOCRIT 39.1 % (36.0-47.0); HEMOGLOBIN 13.1 g/dL (12.0-15.5); LYMPH # 2.7 x10^3/uL (1.0-4.8); LYMPH % 37 % (24-48); MEAN CORPUSCULAR HEMOGLOBIN 31 pg (25-35); MEAN CORPUSCULAR HGB CONC 33 g/dL (31-37); MEAN CORPUSCULAR VOLUME 92 fL (79-100); MONO # 0.5 x10^3/uL (0.0-1.1); MONO % 6 % (0-9); NEUT # 4.1 x10^3uL (1.8-7.7); NEUT % 55 % (31-73); PLATELET COUNT 347 x10^3/uL (140-400); RED BLOOD COUNT 4.25 x10^6/uL (3.50-5.40); RED CELL DISTRIBUTION WIDTH 14.1 % (11.5-14.5); WHITE BLOOD COUNT 7.4 x10^3/uL (4.0-11.0)
[2017-12-10 12:08] LABS: BILIRUBIN,URINE NEG (NEG); CLARITY,URINE HAZY; COLOR,URINE YELLOW; GLUCOSE,URINE NEG (NEG); NITRITE,URINE NEG (NEG); UROBILINOGEN,URINE 0.2 mg/dL (0.2 mg/dL)
[2017-12-10 12:09] LABS: BACTERIA,URINE MOD /HPF (0-FEW); SQUAMOUS EPITHELIAL CELL,UR MOD /LPF
[2017-12-10] MEDS ORDERED: KETOROLAC 30 MG/ML VIAL. IV ONE (12:15)
[2017-12-10] MEDS ORDERED: ONDANSETRON PF 4 MG/2 ML VIAL. IV ONE (12:15)
--- NOTE | 2017-12-10 12:18 | RAD ---
Examination: CT of the abdomen pelvis without contrast HISTORY: History of left flank pain, left lower quadrant abdominal pain COMPARISON: 09/30/2017 TECHNIQUE: Axial CT images of the abdomen pelvis were performed without contrast. Coronal and sagittal reformats are performed Exposure: One or more of the following individualized dose reduction techniques were utilized for this examination: 1. Automated exposure control 2. Adjustment of the mA and/or kV according to patient size 3. Use of iterative reconstruction technique FINDINGS: The visualized bibasilar lungs are clear. No evidence of free air identified in the abdomen. The evaluation of the solid organs is limited lack of IV contrast. The evaluation of bowel is limited due to lack of oral contrast the visualized noncontrasted liver, spleen, adrenals grossly appears unremarkable. The gallbladder is mildly distended The stomach is mildly distended. The visualized pancreas grossly appears unremarkable. The small bowel is nondilated. The appendix is normal. Feces and gas noted in the colon. Multiple sigmoid colon diverticulosis. Urinary bladder is mildly distended. Tiny 1 mm intrarenal collecting system calculus identified in the left kidney. Mild degenerative changes lumbar spine. Partially visualized bilateral breast prosthesis. IMPRESSION: 1. Punctate 1 mm intrarenal collecting system calculus left kidney. 2. Multiple sigmoid colon diverticulosis. Electronically signed by: Garo Berman MD (12/10/2017 12:14 PM) [id number]
[2017-12-10 12:19] LABS: BARBITURATES NEG (NEG); BENZODIAZEPINES NEG (NEG); CANNABINOIDS NEG (NEG); COCAINE NEG (NEG); METHADONE NEG (NEG); OPIATES NEG (NEG); PHENCYCLIDINE NEG (NEG)
[2017-12-10 12:20] LABS: AMPHETAMINE/METHAMPHETAMINE NEG (NEG)
[2017-12-10 12:22] LABS: ALBUMIN 3.5 g/dL (3.4-5.0); ALBUMIN/GLOBULIN RATIO 1.1 (1.0-1.7); CALCIUM 9.5 mg/dL (8.5-10.1); CREATININE 0.9 mg/dL (0.6-1.0); POTASSIUM 4.2 mmol/L (3.5-5.1); TOTAL BILIRUBIN 0.2 mg/dL (0.2-1.0); TOTAL PROTEIN 6.7 g/dL (6.4-8.2)
--- NOTE | 2017-12-10 12:58 | PHYS DOC ---
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 Smoking: Less than 1pk/day Alcohol Use: Occasionally Drug Use: None Adult General Chief Complaint Chief Complaint: ABDOMINAL PAIN HPI HPI 42-year-old female patient with history of diverticulitis and kidney stone complaining of sudden onset of left lower quadrant pain for the last and over as a sharp and severe pain with radiation to the back and genital area and rated her pain 10 over 10. Patient complaining of nausea without vomiting and denies urinary symptom and fever and chills. Patient states she had constipation yesterday and had a bowel movement today. Patient complaining of bloating abdomen for several months and constipation intermittently. Patient states her pain dropped to 8/10 and she was able to drive to hospital by herself. Review of Systems Review of Systems Constitutional: Denies fever or chills [] Eyes: Denies change in visual acuity, redness, or eye pain [] HENT: Denies nasal congestion or sore throat [] Respiratory: Denies cough or shortness of breath [] Cardiovascular: No additional information not addressed in HPI [] GI: Reports abdominal pain, nausea, constipation, denies vomiting, bloody stools or diarrhea [] : Denies dysuria or hematuria [] Musculoskeletal: Denies back pain or joint pain [] Integument: Denies rash or skin lesions [] Neurologic: Denies headache, focal weakness or sensory changes [] Endocrine: Denies polyuria or polydipsia [] All other systems were reviewed and found to be within normal limits, except as documented in this note. Current Medications Current Medications Current Medications Medications (Trade) Dose Ordered Sig/Alice Start Time Stop Time Status Last Admin Dose Admin Ketorolac Tromethamine (Toradol Im) 60 mg STK-MED ONCE 12/10/17 11:52 12/10/17 11:53 DC Ketorolac Tromethamine (Toradol) 30 mg STK-MED ONCE 12/10/17 11:54 12/10/17 11:55 DC Ondansetron HCl (Zofran) 4 mg STK-MED ONCE 12/10/17 11:52 12/10/17 11:54 DC Sodium Chloride 1,000 ml @ 1,000 mls/hr Q1H 12/10/17 11:37 12/10/17 12:36 12/10/17 11:57 1,000 MLS/HR Allergies Allergies Allergies Coded Allergies Type Severity Reaction Last Updated Verified aripiprazole Allergy Intermediate 03/22/14 Yes bupropion Allergy Intermediate 03/22/14 Yes varenicline Allergy Intermediate 03/22/14 Yes Physical Exam Physical Exam Constitutional: Well developed, well nourished, moderate distress, non-toxic appearance. [] HENT: Normocephalic, atraumatic, oropharynx moist, no oral exudates, nose normal. [] Eyes: PERRLA, EOMI, conjunctiva normal, no discharge. [] Neck: Normal range of motion, no tenderness, supple, no stridor. [] Cardiovascular:Heart rate regular rhythm, no murmur [] Lungs & Thorax: Bilateral breath sounds clear to auscultation [] Abdomen: Bowel sounds hyperactive, mildly distended with gas, soft, left lower quadrant guarding, no tenderness, no masses, no pulsatile masses. [] Skin: Warm, dry, no erythema, no rash. [] Back: No tenderness, no CVA tenderness. [] Extremities: No tenderness, no cyanosis, no clubbing, ROM intact, no edema. [] Neurologic: Alert and oriented X 3, normal motor function, normal sensory function, no focal deficits noted. [] Psychologic: Affect anxious, judgement normal, mood normal. [] Current Patient Data Vital Signs Vital Signs Date Time Temp Pulse Resp B/P (MAP) Pulse Ox O2 Delivery O2 Flow Rate FiO2 12/10/17 12:15 74 18 123/79 (94) 98 Room Air 12/10/17 11:19 98.2 Lab Results Laboratory Tests Test 12/10/17 11:42 12/10/17 11:46 Urine Collection Type Unknown Urine Color Yellow Urine Clarity Hazy Urine pH 7.0 Urine Specific [place] 1.015 Urine Protein Neg (NEG-TRACE) Urine Glucose (UA) Neg mg/dL (NEG) Urine Ketones (Stick) Neg mg/dL (NEG) Urine Blood Neg (NEG) Urine Nitrite Neg (NEG) Urine Bilirubin Neg (NEG) Urine Urobilinogen Dipstick 0.2 mg/dL (0.2 mg/dL) Urine Leukocyte Esterase Neg (NEG) Urine RBC 1-2 /HPF (0-2) Urine WBC 1-4 /HPF (0-4) Urine Squamous Epithelial Cells Mod /LPF Urine Bacteria Mod /HPF (0-FEW) Urine Opiates Screen Neg (NEG) Urine Methadone Screen Neg (NEG) Urine Barbiturates Neg (NEG) Urine Phencyclidine Screen Neg (NEG) Urine Amphetamine/Methamphetamine Neg (NEG) Urine Benzodiazepines Screen Neg (NEG) Urine Cocaine Screen Neg (NEG) Urine Cannabinoids Screen Neg (NEG) Urine Ethyl Alcohol Neg (NEG) White Blood Count 7.4 x10^3/uL (4.0-11.0) Red Blood Count 4.25 x10^6/uL (3.50-5.40) Hemoglobin 13.1 g/dL (12.0-15.5) Hematocrit 39.1 % (36.0-47.0) Mean Corpuscular Volume 92 fL (79-100) Mean Corpuscular Hemoglobin 31 pg (25-35) Mean Corpuscular Hemoglobin Concent 33 g/dL (31-37) Red Cell Distribution Width 14.1 % (11.5-14.5) Platelet Count 347 x10^3/uL (140-400) Neutrophils (%) (Auto) 55 % (31-73) Lymphocytes (%) (Auto) 37 % (24-48) Monocytes (%) (Auto) 6 % (0-9) Eosinophils (%) (Auto) 2 % (0-3) Basophils (%) (Auto) 1 % (0-3) Neutrophils # (Auto) 4.1 x10^3uL (1.8-7.7) Lymphocytes # (Auto) 2.7 x10^3/uL (1.0-4.8) Monocytes # (Auto) 0.5 x10^3/uL (0.0-1.1) Eosinophils # (Auto) 0.1 x10^3/uL (0.0-0.7) Basophils # (Auto) 0.1 x10^3/uL (0.0-0.2) Sodium Level 142 mmol/L (136-145) Potassium Level 4.2 mmol/L (3.5-5.1) Chloride Level 104 mmol/L (98-107) Carbon Dioxide Level 26 mmol/L (21-32) Anion Gap 12 (6-14) Blood Urea Nitrogen 19 mg/dL (7-20) Creatinine 0.9 mg/dL (0.6-1.0) Estimated GFR (Cockcroft-Gault) 68.0 BUN/Creatinine Ratio 21 (6-20) H Glucose Level 92 mg/dL (70-99) Calcium Level 9.5 mg/dL (8.5-10.1) Total Bilirubin 0.2 mg/dL (0.2-1.0) Aspartate Amino Transferase (AST) 31 U/L (15-37) Alanine Aminotransferase (ALT) 64 U/L (14-59) H Alkaline Phosphatase 207 U/L (46-116) H Total Protein 6.7 g/dL (6.4-8.2) Albumin 3.5 g/dL (3.4-5.0) Albumin/Globulin Ratio 1.1 (1.0-1.7) Lipase 175 U/L (73-393) EKG EKG [] Radiology/Procedures Radiology/Procedures [[place] [id number] IMAGING REPORT Signed PATIENT: CODY CALABRESE ACCOUNT: [id number] : 1975 LOCATION: ER AGE: 42 SEX: F EXAM STATUS: REG ER ORD. PHYSICIAN: LANA GAYTAN MD REASON: LLQ pain with radiation to the flank PROCEDURE: CT ABDOMEN PELVIS WO CONTRAST Examination: CT of the abdomen pelvis without contrast HISTORY: History of left flank pain, left lower quadrant abdominal pain COMPARISON: 09/30/2017 TECHNIQUE: Axial CT images of the abdomen pelvis were performed without contrast. Coronal and sagittal reformats are performed Exposure: One or more of the following individualized dose reduction techniques were utilized for this examination: 1. Automated exposure control 2. Adjustment of the mA and/or kV according to patient size 3. Use of iterative reconstruction technique FINDINGS: The visualized bibasilar lungs are clear. No evidence of free air identified in the abdomen. The evaluation of the solid organs is limited lack of IV contrast. The evaluation of bowel is limited due to lack of oral contrast the visualized noncontrasted liver, spleen, adrenals grossly appears unremarkable. The gallbladder is mildly distended The stomach is mildly distended. The visualized pancreas grossly appears unremarkable. The small bowel is nondilated. The appendix is normal. Feces and gas noted in the colon. Multiple sigmoid colon diverticulosis. Urinary bladder is mildly distended. Tiny 1 mm intrarenal collecting system calculus identified in the left kidney. Mild degenerative changes lumbar spine. Partially visualized bilateral breast prosthesis. IMPRESSION: 1. Punctate 1 mm intrarenal collecting system calculus left kidney. 2. Multiple sigmoid colon diverticulosis. Electronically signed by: Garo Berman MD (12/10/2017 12:14 PM) [id number] DICTATED AND SIGNED BY: GARO BERMAN MD DATE: 12/10/17 2075 CC: SILVIA WOLF MD; LANA GAYTAN MD ~ ] Course & Med Decision Making Course & Med Decision Making Pertinent Labs and Imaging studies reviewed. (See chart for details) Evaluation of patient in ER showed 42-year-old female patient with history of diverticulitis and kidney stone and complaining of left lower quadrant pain for 1 hour. Patient was very anxious and asking for pain medication. Patient had unremarkable CT abdomen and pelvis except for accidental finding of 1 mm left nephrolithiasis. Labs was unremarkable except for mild UTI. Patient informed about test results needs to follow up with her primary care physician regarding chronic abdominal bloating and constipation. Patient asking for pain medication frequently and informed that narcotic pain medication makes her bloating and constipation worse. Patient had chronic elevation of liver enzymes that gradually getting worse. Patient states she drinks alcohol occasionally. Patient informed to follow up with her primary care physician regarding abnormal liver function tests. Dragon Disclaimer Dragon Disclaimer This electronic medical record was generated, in whole or in part, using a voice recognition dictation system. Departure Departure: Impression: Primary Impression: Left lower quadrant pain Additional Impressions: Abnormal liver function Nephrolithiasis UTI (urinary tract infection) Constipation Abdominal bloating Anxiety Disposition: 01 HOME, SELF-CARE (at 1303) Condition: IMPROVED Referrals: SILVIA WOLF MD (PCP) Patient Instructions: Abdominal Pain, Bloating, Constipation, Adult, Diet for Kidney Stones, Diverticulosis, Urinary Tract Infection Additional Instructions: Drink plenty of liquids Follow-up with your primary care physician in 3-5 days Return to ER if not getting better Scripts [percogesic] No Conflict Check 1 TAB PO QID PRN for PAIN, #14 Prov: LANA GAYTAN MD 12/10/17 Magnesium Citrate (MAGNESIUM CITRATE) 296 Ml Solution 296 ML PO ONCE, #296 ML Prov: LANA GAYTAN MD 12/10/17 Ciprofloxacin Hcl (CIPRO) 250 Mg Tablet 1 TAB PO BID, #6 TAB Prov: LANA GAYTAN MD 12/10/17 Problem Qualifiers LANA GAYTAN MD Dec 10, 2017 12:58
[2017-12-10] MEDS ORDERED: diphenhydrAMINE 50 MG/ML VIAL IVP ONE (13:00)
[2017-12-10 13:04] VITALS: BP 100/60
[2017-12-10] MEDS ORDERED: CIPR250T30 PO (13:07)
[2017-12-10] MEDS ORDERED: MAGN296S9 PO (13:07)
[2017-12-10] MEDS ORDERED: percogesic PO (13:07)
== END 2017-12-10 13:18 | disposition home or self-care (01) ==
LOC: ER 11:08
DX: N20.0 Calculus of kidney (principal); R79.89 Other specified abnormal findings of blood chemistry; N39.0 Urinary tract infection, site not specified; K59.00 Constipation, unspecified; G43.909 Migraine, unspecified, not intractable, without status migrainosus; F17.200 Nicotine dependence, unspecified, uncomplicated; F41.9 Anxiety disorder, unspecified; Z87.442 Personal history of urinary calculi; Z86.73 Personal history of transient ischemic attack (TIA), and cerebral infarction without residual deficits; Z90.710 Acquired absence of both cervix and uterus; Z88.1 Allergy status to other antibiotic agents; Z88.8 Allergy status to other drugs, medicaments and biological substances
CPT/HCPCS: 36415; 74176; 80053; 80307; 81001; 83690; 85025; 87086; 96374; 96375; 99285; J1200; J1885; J2405; G0479; J7030

== ENCOUNTER 2017-12-16 10:38 | Inpatient (IN) | payer BC ==
[~2017-12-16] VITALS: Ht 152.4 cm; Wt 68.7 kg
[~2017-12-16 10:38] MED LIST changes: +CIPR250T30 PO; +MAGN296S9 PO; +percogesic PO
[2017-12-16 11:20] VITALS: BP 114/77
[2017-12-16] MEDS ORDERED: ALPRAZOLAM 0.5 MG PO SCH (11:45)
[2017-12-16] MEDS ORDERED: HYDROCODONE BIT PO PRN ×2 (11:45)
[2017-12-16] MEDS ORDERED: ACETAMINOPHEN PO PRN ×2 (11:45)
[2017-12-16] MEDS ORDERED: MAGNESIUM CITRATE PO SCH (11:45)
[2017-12-16] MEDS ORDERED: CLON1TAB4 PO (12:10)
[2017-12-16] MEDS ORDERED: CYAN250012 PO (12:10)
[2017-12-16] MEDS ORDERED: CALC200T3 PO (12:10)
[2017-12-16] MEDS ORDERED: LAMO100T5 PO (12:10)
[2017-12-16] MEDS ORDERED: MULT-245 PO (12:10)
[2017-12-16] MEDS ORDERED: VENL150C PO (12:10)
[2017-12-16] MEDS: IV NORMAL SALINE 1,000ML 1,000 ML IV SCH ×2 (12:19→21:56)
[2017-12-16 12:21] LABS: BASO # 0.1 x10^3/uL (0.0-0.2); BASO % 1 % (0-3); EOS # 0.1 x10^3/uL (0.0-0.7); EOS % 2 % (0-3); HEMATOCRIT 37.1 % (36.0-47.0); HEMOGLOBIN 12.7 g/dL (12.0-15.5); LYMPH # 2.3 x10^3/uL (1.0-4.8); LYMPH % 28 % (24-48); MEAN CORPUSCULAR HEMOGLOBIN 31 pg (25-35); MEAN CORPUSCULAR HGB CONC 34 g/dL (31-37); MEAN CORPUSCULAR VOLUME 92 fL (79-100); MONO # 0.5 x10^3/uL (0.0-1.1); MONO % 6 % (0-9); NEUT # 5.2 x10^3uL (1.8-7.7); NEUT % 63 % (31-73); PLATELET COUNT 339 x10^3/uL (140-400); RED BLOOD COUNT 4.05 x10^6/uL (3.50-5.40); RED CELL DISTRIBUTION WIDTH 14.1 % (11.5-14.5); WHITE BLOOD COUNT 8.2 x10^3/uL (4.0-11.0)
[2017-12-16] MEDS: ONDANSETRON PF 4 MG/2 ML VIAL. IV PRN (12:21)
[2017-12-16] MEDS ORDERED: CALCIUM CARBONATE 500 MG TAB.CHEW PO PRN ×2 (12:30→17:15)
[2017-12-16 12:33] LABS: ALBUMIN 3.3 g/dL (3.4-5.0); CALCIUM 8.6 mg/dL (8.5-10.1); CREATININE 0.7 mg/dL (0.6-1.0); GFR 90.9; POTASSIUM 3.9 mmol/L (3.5-5.1); TOTAL BILIRUBIN 0.2 mg/dL (0.2-1.0); TOTAL PROTEIN 6.6 g/dL (6.4-8.2)
[2017-12-16] MEDS ORDERED: HYDROcodone/APAP 5/325MG 1 TAB TABLET PO PRN (12:45)
[2017-12-16] MEDS ORDERED: KETOROLAC 30 MG/ML VIAL. IV PRN (13:45)
[2017-12-16] MEDS ORDERED: NON FORMULARY ITEM (Alprazolam (Xanax) 1 TAB) PO SCH (14:00)
--- NOTE | 2017-12-16 14:24 | RAD ---
CT of the abdomen and pelvis without contrast. 12/16/2017 12:40 PM Indication: KIDNEY STONES Comparison Study: CT of the abdomen and pelvis without contrast December 10, 2017. Technique: Multidetector CT imaging of the abdomen pelvis is obtained without administration of contrast. Findings: The visualized bilateral lung bases are clear.The spleen, bilateral adrenal glands, gallbladder, and pancreas have a normal noncontrast enhanced appearance. The superior most hepatic dome was not included in the exam. Remaining liver is unremarkable. 1 mm nonobstructing stone in the inferior pole left kidney is unchanged. The kidneys are otherwise unremarkable without evidence of obstructive uropathy. The ureters are unremarkable course and caliber. Prior hysterectomy noted. Sigmoid colonic diverticulosis is seen without evidence of acute diverticulitis. The appendix is normal in appearance. No free fluid or free air seen in the inferior pelvis. Very small fat filled umbilical hernia is unchanged. No acute osseous abnormalities are identified. IMPRESSION: No evidence of acute intra-abdominal abnormality or acute change from prior study. 1 mm nonobstructing stone in the inferior pole the left kidney is stable in appearance CT DOSING PQRS STATEMENT: One or more of the following individualized dose reduction techniques were utilized for this examination: 1. Automated exposure control 2. Adjustment of the mA and/or kV according to patient size 3. Use of iterative reconstruction technique Electronically signed by: Kuldip Triplett MD (12/16/2017 2:20 PM) [id number]
[2017-12-16 14:50] VITALS: BP 101/66
[2017-12-16] MEDS ORDERED: SODIUM PHOSPHATES 19/7GM 133 ML ENEMA. PR ONE (16:30)
[2017-12-16 20:03] VITALS: BP 96/66
[2017-12-16] MEDS: VENLAFAXINE 75 MG TABLET. PO SCH (21:00)
[2017-12-16] MEDS ORDERED: LORazepam 1 MG TABLET PO SCH (21:00)
[2017-12-16] MEDS ORDERED: NON FORMULARY ITEM (Ciprofloxacin Hcl (Cipro) 1 TAB) PO SCH ×2 (21:00)
[2017-12-16] MEDS ORDERED: NON FORMULARY ITEM (Metronidazole (Flagyl) 1 TAB) PO SCH (21:00)
[2017-12-16] MEDS: clonazePAM 1 MG TABLET PO SCH (21:55)
[2017-12-16] MEDS: lamoTRIgine 100 MG TABLET. PO SCH (21:55)
[2017-12-16 23:20] VITALS: BP 109/72
[2017-12-17 05:29] VITALS: BP 117/78
[2017-12-17 06:22] LABS: BASO % 0 % (0-3); EOS # 0.1 x10^3/uL (0.0-0.7); EOS % 2 % (0-3); HEMATOCRIT 36.3 % (36.0-47.0); HEMOGLOBIN 12.1 g/dL (12.0-15.5); LYMPH # 2.6 x10^3/uL (1.0-4.8); LYMPH % 39 % (24-48); MEAN CORPUSCULAR HEMOGLOBIN 31 pg (25-35); MEAN CORPUSCULAR HGB CONC 33 g/dL (31-37); MEAN CORPUSCULAR VOLUME 93 fL (79-100); MONO # 0.4 x10^3/uL (0.0-1.1); MONO % 6 % (0-9); NEUT # 3.5 x10^3uL (1.8-7.7); NEUT % 53 % (31-73); PLATELET COUNT 336 x10^3/uL (140-400); RED CELL DISTRIBUTION WIDTH 14.6 % (11.5-14.5); WHITE BLOOD COUNT 6.6 x10^3/uL (4.0-11.0)
[2017-12-17 06:23] LABS: CALCIUM 8.3 mg/dL (8.5-10.1); CREATININE 0.7 mg/dL (0.6-1.0); GFR 90.9; POTASSIUM 3.9 mmol/L (3.5-5.1)
--- NOTE | 2017-12-17 07:54 | RAD ---
EXAM: Supine AP view of the abdomen DATE: 12/16/2017 4:20 PM INDICATION: Abdominal distention with severe pain. No bowel movement for several days. Colonoscopy done three to four weeks ago. CT done earlier this afternoon. COMPARISON: CT abdomen and pelvis 12/16/2017 FINDINGS: No abnormal small or large bowel dilatation. Moderate colonic stool content. No abnormal soft tissue mass effect. No suspicious calcifications are seen. Evaluation for free intraperitoneal gas is limited on this supine exam. IMPRESSION: 1. No evidence for bowel obstruction. Electronically signed by: Thang Sorenson MD (12/17/2017 7:48 AM) [facility]
[2017-12-17] MEDS ORDERED: ASPIRIN ENTERIC COATED 325 MG TABLET.DR. PO SCH (08:00)
[2017-12-17] MEDS: lamoTRIgine 100 MG TABLET. PO SCH (08:30)
[2017-12-17] MEDS: clonazePAM 1 MG TABLET PO SCH (08:30)
[2017-12-17] MEDS: VENLAFAXINE 75 MG TABLET. PO SCH (08:31)
[2017-12-17] MEDS: IV NORMAL SALINE 1,000ML 1,000 ML IV SCH (08:32)
[2017-12-17] MEDS ORDERED: MULTIVITAMIN with MINERAL TABLET. PO SCH (09:00)
[2017-12-17] MEDS ORDERED: CITALOPRAM 20 MG TABLET. PO SCH (09:00)
[2017-12-17] MEDS ORDERED: CYANOCOBALAMIN (VITAMIN B-12) 1,000 MCG TABLET. PO SCH (09:00)
[2017-12-17 10:43] VITALS: BP 118/74
[2017-12-17] MEDS: HYDROmorphone PF 2 MG/ML VIAL IV PRN ×2 (11:55→15:37)
[2017-12-17 14:36] VITALS: BP 93/61
[2017-12-17] MEDS: ONDANSETRON PF 4 MG/2 ML VIAL. IV PRN (16:27)
== END 2017-12-17 16:52 | disposition short-term general hospital (02) | DRG 694 ==
LOC: 1 SOUTH 10:57
PROVIDERS: ADMIT Family Medicine; ATTEND Family Medicine
DX: N20.0 Calculus of kidney (principal); K59.00 Constipation, unspecified; F17.210 Nicotine dependence, cigarettes, uncomplicated; M54.5 Low back pain; Z87.442 Personal history of urinary calculi; Z86.73 Personal history of transient ischemic attack (TIA), and cerebral infarction without residual deficits; Z90.710 Acquired absence of both cervix and uterus; Z88.8 Allergy status to other drugs, medicaments and biological substances; Z90.721 Acquired absence of ovaries, unilateral
CPT/HCPCS: 36415; 74018; 74176; 80048; 80053; 85025; 86705; 86709; 86803; 87340; 99406; J1170; J1885; J2405; J3010; J7030

== ENCOUNTER 2017-12-26 20:08 | Emergency (ER) | payer BC ==
[~2017-12-26] VITALS: Ht 152.4 cm; Wt 65.8 kg
[~2017-12-26 20:08] MED LIST changes: -SINCALIDE 1.32 MCG in IV NORMAL SALINE 50ML 30 ML IV ONE
[2017-12-26] MEDS ORDERED: ONDANSETRON PF 4 MG/2 ML VIAL. IV ONE (21:15)
[2017-12-26] MEDS ORDERED: IV NORMAL SALINE 1,000ML 1,000 ML IV SCH (21:15)
[2017-12-26 21:33] LABS: BASO # 0.1 x10^3/uL (0.0-0.2); BASO % 1 % (0-3); EOS # 0.2 x10^3/uL (0.0-0.7); EOS % 2 % (0-3); LYMPH # 3.5 x10^3/uL (1.0-4.8); LYMPH % 33 % (24-48); MEAN CORPUSCULAR HEMOGLOBIN 31 pg (25-35); MEAN CORPUSCULAR HGB CONC 34 g/dL (31-37); MEAN CORPUSCULAR VOLUME 91 fL (79-100); MONO # 0.8 x10^3/uL (0.0-1.1); MONO % 7 % (0-9); NEUT % 57 % (31-73); PLATELET COUNT 506 x10^3/uL (140-400); RED BLOOD COUNT 4.16 x10^6/uL (3.50-5.40); RED CELL DISTRIBUTION WIDTH 14.2 % (11.5-14.5); WHITE BLOOD COUNT 10.6 x10^3/uL (4.0-11.0)
[2017-12-26 21:43] LABS: BACTERIA,URINE FEW /HPF (0-FEW); BILIRUBIN,URINE NEG (NEG); CLARITY,URINE CLEAR; COLOR,URINE YELLOW; GLUCOSE,URINE NEG (NEG); HYALINE CASTS, URINE OCC /HPF; NITRITE,URINE NEG (NEG); SQUAMOUS EPITHELIAL CELL,UR OCC /LPF; UROBILINOGEN,URINE 0.2 mg/dL (0.2 mg/dL)
[2017-12-26 21:45] LABS: ALBUMIN 3.7 g/dL (3.4-5.0); ALBUMIN/GLOBULIN RATIO 0.9 (1.0-1.7); CALCIUM 8.7 mg/dL (8.5-10.1); GFR 60.2; POTASSIUM 3.4 mmol/L (3.5-5.1); TOTAL BILIRUBIN 0.2 mg/dL (0.2-1.0); TOTAL PROTEIN 7.7 g/dL (6.4-8.2)
[2017-12-26] MEDS ORDERED: LORazepam 2 MG/ML VIAL IV ONE (22:45)
--- NOTE | 2017-12-26 23:28 | PHYS DOC ---
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 Smoking: Less than 1pk/day Alcohol Use: Occasionally Drug Use: None Adult General Chief Complaint Chief Complaint: ABDOMINAL PAIN HPI HPI Patient is a 42 year old female who presents with complaint of abdominal pain. Patient has had multiple visits to the emergency department for evaluation of abdominal pain. The patient has had multiple CT scans and has had a recent nuclear medicine hepatobiliary scan to determine the cause of her symptoms but has not had any positive results to account for the cause of patient's pain. Patient states that she started having worsening pain in her lower abdomen and states that it radiates towards her left flank. The patient has had associated nausea. The patient states that the symptoms seemed to worsen after she had sexual intercourse with her boyfriend. The patient states that her abdomen became very hard and has continued in this way upon presentation to the emergency department. Patient rates pain currently as 9 out of 10. Patient has not taken any medications for her symptoms. Review of Systems Review of Systems Constitutional: Denies fever or chills [] Eyes: Denies change in visual acuity, redness, or eye pain [] HENT: Denies nasal congestion or sore throat [] Respiratory: Denies cough or shortness of breath [] Cardiovascular: Denies chest pain or edema[] GI: Abdominal pain, nausea, denies vomiting, bloody stools or diarrhea [] : Denies dysuria or hematuria [] Musculoskeletal: Denies back pain or joint pain [] Integument: Denies rash or skin lesions [] Neurologic: Denies headache, focal weakness or sensory changes [] All other systems were reviewed and found to be within normal limits, except as documented in this note. Current Medications Current Medications Current Medications Medications (Trade) Dose Ordered Sig/Alice Start Time Stop Time Status Last Admin Dose Admin Fentanyl Citrate (Fentanyl 2ml Vial) 50 mcg PRN Q15MIN PRN 12/26/17 21:15 12/27/17 21:14 12/26/17 21:29 50 MCG Lorazepam (Ativan) 1 mg 1X ONCE 12/26/17 22:45 12/26/17 22:46 DC 12/26/17 22:38 1 MG Ondansetron HCl (Zofran) 4 mg 1X ONCE 12/26/17 21:15 12/26/17 21:16 DC 12/26/17 21:29 4 MG Sodium Chloride 1,000 ml @ 1,000 mls/hr Q1H 12/26/17 21:15 12/26/17 22:14 DC 12/26/17 21:29 1,000 MLS/HR Allergies Allergies Allergies Coded Allergies Type Severity Reaction Last Updated Verified aripiprazole Allergy Intermediate 03/22/14 Yes bupropion Allergy Intermediate 03/22/14 Yes varenicline Allergy Intermediate 03/22/14 Yes Physical Exam Physical Exam Constitutional: Alert, afebrile, appears in mild to moderate discomfort. [] HENT: Normocephalic, atraumatic, bilateral external ears normal, oropharynx moist, no oral exudates, nose normal. [] Eyes: PERRLA, EOMI, conjunctiva normal, no discharge. [] Neck: Normal range of motion, no tenderness, supple, no stridor. [] Cardiovascular:Heart rate regular rhythm, no murmur [] Lungs & Thorax: Bilateral breath sounds clear to auscultation [] Abdomen: Bowel sounds normal, soft, suprapubic and left lower quadrant tenderness to palpation, no masses, no pulsatile masses. [] Skin: Warm, dry, no erythema, no rash. [] Back: No tenderness, no CVA tenderness. [] Extremities: No tenderness, no cyanosis, no clubbing, ROM intact, no edema. [] Neurologic: Alert and oriented X 3, normal motor function, normal sensory function, no focal deficits noted. [] Current Patient Data Vital Signs Vital Signs Date Time Temp Pulse Resp B/P (MAP) Pulse Ox O2 Delivery O2 Flow Rate FiO2 12/26/17 22:27 90 18 138/ 98 Room Air 12/26/17 20:31 98.2 Lab Results Laboratory Tests Test 12/26/17 21:20 White Blood Count 10.6 x10^3/uL (4.0-11.0) Red Blood Count 4.16 x10^6/uL (3.50-5.40) Hemoglobin 13.0 g/dL (12.0-15.5) Hematocrit 38.0 % (36.0-47.0) Mean Corpuscular Volume 91 fL (79-100) Mean Corpuscular Hemoglobin 31 pg (25-35) Mean Corpuscular Hemoglobin Concent 34 g/dL (31-37) Red Cell Distribution Width 14.2 % (11.5-14.5) Platelet Count 506 x10^3/uL (140-400) H Neutrophils (%) (Auto) 57 % (31-73) Lymphocytes (%) (Auto) 33 % (24-48) Monocytes (%) (Auto) 7 % (0-9) Eosinophils (%) (Auto) 2 % (0-3) Basophils (%) (Auto) 1 % (0-3) Neutrophils # (Auto) 6.0 x10^3uL (1.8-7.7) Lymphocytes # (Auto) 3.5 x10^3/uL (1.0-4.8) Monocytes # (Auto) 0.8 x10^3/uL (0.0-1.1) Eosinophils # (Auto) 0.2 x10^3/uL (0.0-0.7) Basophils # (Auto) 0.1 x10^3/uL (0.0-0.2) Urine Collection Type Unknown Urine Color Yellow Urine Clarity Clear Urine pH 5.5 Urine Specific [place] 1.025 Urine Protein Neg (NEG-TRACE) Urine Glucose (UA) Neg mg/dL (NEG) Urine Ketones (Stick) Trace mg/dL (NEG) Urine Blood Neg (NEG) Urine Nitrite Neg (NEG) Urine Bilirubin Neg (NEG) Urine Urobilinogen Dipstick 0.2 mg/dL (0.2 mg/dL) Urine Leukocyte Esterase Neg (NEG) Urine RBC 1-2 /HPF (0-2) Urine WBC 1-4 /HPF (0-4) Urine Squamous Epithelial Cells Occ /LPF Urine Bacteria Few /HPF (0-FEW) Urine Hyaline Casts Occ /HPF Urine Mucus Marked /LPF Sodium Level 144 mmol/L (136-145) Potassium Level 3.4 mmol/L (3.5-5.1) L Chloride Level 107 mmol/L (98-107) Carbon Dioxide Level 27 mmol/L (21-32) Anion Gap 10 (6-14) Blood Urea Nitrogen 11 mg/dL (7-20) Creatinine 1.0 mg/dL (0.6-1.0) Estimated GFR (Cockcroft-Gault) 60.2 BUN/Creatinine Ratio 11 (6-20) Glucose Level 109 mg/dL (70-99) H Calcium Level 8.7 mg/dL (8.5-10.1) Total Bilirubin 0.2 mg/dL (0.2-1.0) Aspartate Amino Transferase (AST) 23 U/L (15-37) Alanine Aminotransferase (ALT) 49 U/L (14-59) Alkaline Phosphatase 270 U/L (46-116) H Total Protein 7.7 g/dL (6.4-8.2) Albumin 3.7 g/dL (3.4-5.0) Albumin/Globulin Ratio 0.9 (1.0-1.7) L Lipase 246 U/L (73-393) EKG EKG Not performed[] Radiology/Procedures Radiology/Procedures Not performed[] Course & Med Decision Making Course & Med Decision Making Pertinent Labs and Imaging studies reviewed. (See chart for details) Patient is given IV fluids, fentanyl, and Zofran. Patient also treated with Ativan which helped improve the patient's complaint of her abdomen being tight. The patient does continue however complain of pain symptoms. Patient shows no changes on her lab work. The patient has underwent multiple modalities to assess the cause of the patient's abdominal pain complaints. I do not elicit any symptoms or findings concerning for an acute abdomen at this time. I did contact the patient's primary physician, Dr. Wasserman, he stated that the patient could follow-up tomorrow in his office for reevaluation. Advised that the patient treat symptoms with ibuprofen and Tylenol at home and recommended follow-up tomorrow with her primary doctor. Dragon Disclaimer Dragon Disclaimer This electronic medical record was generated, in whole or in part, using a voice recognition dictation system. Departure Departure: Impression: Primary Impression: Abdominal pain Disposition: HOME, SELF-CARE Condition: STABLE Referrals: SILVIA WASSERMAN MD (PCP) Patient Instructions: Abdominal Pain Additional Instructions: Follow-up with Dr. Wasserman in his office tomorrow. Return to the emergency department for any worsening symptoms. Problem Qualifiers Primary Impression: Abdominal pain Abdominal location: unspecified location Qualified Codes: R10.9 - Unspecified abdominal pain HERIBERTO AGEE MD Dec 26, 2017 23:28
[2017-12-26 23:40] VITALS: BP 126/80
[2017-12-26] MEDS ORDERED: KETOROLAC 30 MG/ML VIAL. IV ONE (23:45)
== END 2017-12-27 | disposition home or self-care (01) ==
LOC: ER 20:08
DX: R10.32 Left lower quadrant pain (principal); R11.0 Nausea; Z87.442 Personal history of urinary calculi; G43.909 Migraine, unspecified, not intractable, without status migrainosus; Z90.710 Acquired absence of both cervix and uterus; F17.200 Nicotine dependence, unspecified, uncomplicated; Z86.73 Personal history of transient ischemic attack (TIA), and cerebral infarction without residual deficits; Z88.8 Allergy status to other drugs, medicaments and biological substances; Z88.1 Allergy status to other antibiotic agents
CPT/HCPCS: 36415; 80053; 81001; 83690; 85025; 96374; 96375; 99284; J1885; J2060; J2405; J3010; J7030

== ENCOUNTER → 2017-12-26 | Outpatient (CLI) | payer BC ==
[2017-12-17 14:36] VITALS: BP 93/61
[~2017-12-26] MED LIST changes: +CALC200T3 PO; +CLON1TAB4 PO; +CYAN250012 PO; +LAMO100T5 PO; +MULT-245 PO; +SINCALIDE 1.32 MCG in IV NORMAL SALINE 50ML 30 ML IV ONE; +VENL150C PO
--- NOTE | 2017-12-26 16:09 | RAD ---
EXAM: Nuclear hepatobiliary scan. HISTORY: Pain. TECHNIQUE: Following intravenous administration of 5.5 mCi Tc 99m Choletec, anterior images of the abdomen were obtained at five minute intervals through one hour. Subsequently, 1.32 mcg CCK was administered and additional images to assess gallbladder ejection fraction were obtained. FINDINGS: There is prompt radiotracer uptake by the liver. No focal defect is seen. There is normal excretion into the biliary tree. The gallbladder is visualized within 10 minutes and there is free flow into the duodenum. The gallbladder ejection fraction is 100%. IMPRESSION: Normal radionuclide biliary scan. Electronically signed by: Hermelinda Cantu MD (12/26/2017 4:06 PM) [facility]
== END | disposition home or self-care (01) ==
LOC: NM 13:04
PROVIDERS: ATTEND Internal Medicine Gastroenterology
DX: R10.84 Generalized abdominal pain (principal); G43.909 Migraine, unspecified, not intractable, without status migrainosus; Z86.73 Personal history of transient ischemic attack (TIA), and cerebral infarction without residual deficits; Z87.440 Personal history of urinary (tract) infections; Z88.1 Allergy status to other antibiotic agents; Z88.8 Allergy status to other drugs, medicaments and biological substances; Z88.4 Allergy status to anesthetic agent; Z88.6 Allergy status to analgesic agent; Z90.721 Acquired absence of ovaries, unilateral; Z90.710 Acquired absence of both cervix and uterus; Z83.3 Family history of diabetes mellitus
CPT/HCPCS: 36415; 78226; 87045; 87324; 96374; 96375; A9537; J2805

== ENCOUNTER 2018-01-19 12:43 | Observation (INO) | payer BC ==
[~2018-01-19] VITALS: Ht 152.4 cm; Wt 68.2 kg
[2018-01-19] MEDS ORDERED: IV NORMAL SALINE 1,000ML 1,000 ML IV ONE (13:30)
[2018-01-19] MEDS ORDERED: HYDROmorphone PF 1 MG/ML DISP.SYRIN IV ONE ×3 (13:30→17:30)
[2018-01-19 14:06] LABS: BASO # 0.1 x10^3/uL (0.0-0.2); BASO % 1 % (0-3); EOS # 0.5 x10^3/uL (0.0-0.7); EOS % 6 % (0-3); HEMATOCRIT 36.7 % (36.0-47.0); HEMOGLOBIN 12.3 g/dL (12.0-15.5); LYMPH # 3.1 x10^3/uL (1.0-4.8); LYMPH % 37 % (24-48); MEAN CORPUSCULAR HEMOGLOBIN 30 pg (25-35); MEAN CORPUSCULAR HGB CONC 34 g/dL (31-37); MEAN CORPUSCULAR VOLUME 91 fL (79-100); MONO # 0.6 x10^3/uL (0.0-1.1); MONO % 7 % (0-9); NEUT # 4.2 x10^3uL (1.8-7.7); NEUT % 50 % (31-73); PLATELET COUNT 317 x10^3/uL (140-400); RED BLOOD COUNT 4.06 x10^6/uL (3.50-5.40); RED CELL DISTRIBUTION WIDTH 14.1 % (11.5-14.5); WHITE BLOOD COUNT 8.4 x10^3/uL (4.0-11.0)
--- NOTE | 2018-01-19 14:18 | RAD ---
Chest, 2 views, 01/19/2018: HISTORY: Cough, recent surgery The heart size and pulmonary vascularity are normal. No pulmonary infiltrate is seen. There is no evidence of pleural fluid. IMPRESSION: No acute cardiopulmonary abnormality is detected. KUB, 01/19/2018: HISTORY: Abdominal pain, recent surgery There is gas and stool scattered throughout the colon in a nonspecific pattern. Surgical clips are present in the right upper quadrant. There is no evidence organomegaly. Left-sided pelvic calcifications are probably phleboliths. IMPRESSION: No acute abdominal abnormality is detected. Electronically signed by: Ángel Lezama MD (01/19/2018 2:14 PM) [facility]
[2018-01-19 14:30] LABS: ALBUMIN 3.1 g/dL (3.4-5.0); ALBUMIN/GLOBULIN RATIO 0.9 (1.0-1.7); CALCIUM 8.3 mg/dL (8.5-10.1); GFR 60.2; POTASSIUM 3.9 mmol/L (3.5-5.1); TOTAL BILIRUBIN 0.2 mg/dL (0.2-1.0); TOTAL PROTEIN 6.6 g/dL (6.4-8.2)
[2018-01-19] MEDS ORDERED: KETOROLAC 30 MG/ML VIAL. IV ONE (14:30)
--- NOTE | 2018-01-19 14:42 | PHYS DOC ---
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 Smoking: Less than 1pk/day Alcohol Use: Occasionally Drug Use: None Adult General Chief Complaint Chief Complaint: ABDOMINAL PAIN HPI HPI 42-year-old female presents with abdominal pain. The patient had gallbladder surgery laparoscopically 5 days ago. The surgery was reported to have no complications. The patient has been taking oxycodone 5 mg at home and this is not controlling the pain. Patient states that she is out of this medicine now. She was actually taking two 5 mg tabs at a time. This told the pain enough to allow her to sleep but she is continued to have pain. Patient has had one bowel movement since surgery which was reported to be normal. She has not had fever or chills. She denies dysuria or urinary frequency. Review of Systems Review of Systems Constitutional: Denies fever or chills [] Eyes: Denies change in visual acuity, redness, or eye pain [] HENT: Denies nasal congestion or sore throat [] Respiratory: Denies cough or shortness of breath [] Cardiovascular: No additional information not addressed in HPI [] GI: Abdominal pain[] : Denies dysuria or hematuria [] Musculoskeletal: Denies back pain or joint pain [] Integument: Denies rash or skin lesions [] Neurologic: Denies headache, focal weakness or sensory changes [] Endocrine: Denies polyuria or polydipsia [] All other systems were reviewed and found to be within normal limits, except as documented in this note. Current Medications Current Medications Current Medications Medications (Trade) Dose Ordered Sig/Alice Start Time Stop Time Status Last Admin Dose Admin Hydromorphone HCl (Dilaudid) 1 mg 1X ONCE 01/19/18 13:30 01/19/18 13:32 DC 01/19/18 13:32 1 MG Sodium Chloride 1,000 ml @ 1,000 mls/hr 1X ONCE 01/19/18 13:30 01/19/18 14:29 01/19/18 13:31 1,000 MLS/HR Allergies Allergies Allergies Coded Allergies Type Severity Reaction Last Updated Verified aripiprazole Allergy Intermediate 03/22/14 Yes bupropion Allergy Intermediate 03/22/14 Yes varenicline Allergy Intermediate 03/22/14 Yes Physical Exam Physical Exam Constitutional: Well developed, well nourished, moderate distress, tearful, non- toxic appearance. [] HENT: Normocephalic, atraumatic, bilateral external ears normal, oropharynx moist, no oral exudates, nose normal. [] Eyes: PERRLA, EOMI, conjunctiva normal, no discharge. [] Neck: Normal range of motion, no tenderness, supple, no stridor. [] Cardiovascular:Heart rate regular rhythm, no murmur [] Lungs & Thorax: Bilateral breath sounds clear to auscultation [] Abdomen: Bowel sounds normal, soft, no tenderness, no masses, no pulsatile masses. Incisions are clean, dry, and intact. No evidence of infection. [] Skin: Warm, dry, no erythema, no rash. [] Back: No tenderness, no CVA tenderness. [] Extremities: No tenderness, no cyanosis, no clubbing, ROM intact, no edema. [] Neurologic: Alert and oriented X 3, normal motor function, normal sensory function, no focal deficits noted. [] Psychologic: Affect normal, judgement normal, mood normal. [] Current Patient Data Vital Signs Vital Signs Date Time Temp Pulse Resp B/P (MAP) Pulse Ox O2 Delivery O2 Flow Rate FiO2 01/19/18 12:51 Room Air 01/19/18 12:51 98.3 95 20 98 Lab Results Laboratory Tests Test 01/19/18 13:45 White Blood Count 8.4 x10^3/uL (4.0-11.0) Red Blood Count 4.06 x10^6/uL (3.50-5.40) Hemoglobin 12.3 g/dL (12.0-15.5) Hematocrit 36.7 % (36.0-47.0) Mean Corpuscular Volume 91 fL (79-100) Mean Corpuscular Hemoglobin 30 pg (25-35) Mean Corpuscular Hemoglobin Concent 34 g/dL (31-37) Red Cell Distribution Width 14.1 % (11.5-14.5) Platelet Count 317 x10^3/uL (140-400) Neutrophils (%) (Auto) 50 % (31-73) Lymphocytes (%) (Auto) 37 % (24-48) Monocytes (%) (Auto) 7 % (0-9) Eosinophils (%) (Auto) 6 % (0-3) H Basophils (%) (Auto) 1 % (0-3) Neutrophils # (Auto) 4.2 x10^3uL (1.8-7.7) Lymphocytes # (Auto) 3.1 x10^3/uL (1.0-4.8) Monocytes # (Auto) 0.6 x10^3/uL (0.0-1.1) Eosinophils # (Auto) 0.5 x10^3/uL (0.0-0.7) Basophils # (Auto) 0.1 x10^3/uL (0.0-0.2) EKG EKG [] Radiology/Procedures Radiology/Procedures [] Impressions: CT of the abdomen and pelvis with contrast, 01/19/2018: HISTORY: Abdominal pain, recent gallbladder surgery Multidetector CT imaging was performed following an IV bolus injection of iodinated contrast material. No oral contrast material was administered. The gallbladder is surgically absent. There is only minimal streaky increased density in the gallbladder fossa compatible with hemorrhage or edema on a postsurgical basis. No significant discrete fluid collection is seen.. The liver is unremarkable. No pancreatic abnormality is seen. The spleen is of normal size. No renal or adrenal abnormality is detected. There is minimal aortic calcific plaquing. No abdominal or pelvic adenopathy is seen. The uterus appears to be surgically absent. There are scattered colonic diverticula, most numerous in the sigmoid region. No paracolonic inflammatory process is seen. The appendix is visualized and shows no abnormality. The small bowel loops are not dilated. There is a moderate amount of retained fluid and food in the stomach. No free air or significant free fluid is evident in the abdomen or pelvis. IMPRESSION: 1. Minimal post surgical change in the gallbladder fossa. 2. Moderate amount of retained food and fluid in the stomach. 3. Colonic diverticulosis. PQRS Compliance Statement: One or more of the following individualized dose reduction techniques were utilized for this examination: 1. Automated exposure control 2. Adjustment of the mA and/or kV according to patient size 3. Use of iterative reconstruction technique Electronically signed by: Ángel Silverio MD (01/19/2018 3:57 PM) [facility] DICTATED AND SIGNED BY: ÁNGEL SILVERIO MD DATE: 01/19/18 0783 CC: HOMA ABEL DO; SILVIA WOLF MD Course & Med Decision Making Course & Med Decision Making Pertinent Labs and Imaging studies reviewed. (See chart for details) I have given the patient 1 mg of Dilaudid, fluids, and had a chest x-ray and KUB. Her chest x-ray is unremarkable. Her KUB is not septic at LDS pattern. There is some stool in the ascending colon. Patient is still having significant pain. Given her pain I will give her another milligram of Dilaudid as well as Toradol. I will do a CT of the abdomen and pelvis to see if there is an identifiable cause. CT is negative except for some constipation when the ascending colon as well as retained food and fluid in the stomach. The patient has required a total of 3 mg of Dilaudid for pain control in the emergency room. I do not believe that I can send her home with pain of this level. We will do a bowel cleanout in the hospital and admit her for pain control. I discussed the patient with Dr. Mott and he has accepted the patient for admission. It is worth noting that there was some concern by the patient's previous PCP that she can exhibit drug-seeking behavior at times. She's had several ailments with out of proportion pain and negative workups. [] Dragon Disclaimer Dragon Disclaimer This electronic medical record was generated, in whole or in part, using a voice recognition dictation system. Departure Departure: Referrals: SILVIA WOLF MD (PCP) HOMA ABEL DO Jan 19, 2018 14:42
[2018-01-19] MEDS ORDERED: IOHEXOL 300 MG/ML 75 ML VIAL. IV ONE (15:00)
--- NOTE | 2018-01-19 16:01 | RAD ---
CT of the abdomen and pelvis with contrast, 01/19/2018: HISTORY: Abdominal pain, recent gallbladder surgery Multidetector CT imaging was performed following an IV bolus injection of iodinated contrast material. No oral contrast material was administered. The gallbladder is surgically absent. There is only minimal streaky increased density in the gallbladder fossa compatible with hemorrhage or edema on a postsurgical basis. No significant discrete fluid collection is seen.. The liver is unremarkable. No pancreatic abnormality is seen. The spleen is of normal size. No renal or adrenal abnormality is detected. There is minimal aortic calcific plaquing. No abdominal or pelvic adenopathy is seen. The uterus appears to be surgically absent. There are scattered colonic diverticula, most numerous in the sigmoid region. No paracolonic inflammatory process is seen. The appendix is visualized and shows no abnormality. The small bowel loops are not dilated. There is a moderate amount of retained fluid and food in the stomach. No free air or significant free fluid is evident in the abdomen or pelvis. IMPRESSION: 1. Minimal post surgical change in the gallbladder fossa. 2. Moderate amount of retained food and fluid in the stomach. 3. Colonic diverticulosis. PQRS Compliance Statement: One or more of the following individualized dose reduction techniques were utilized for this examination: 1. Automated exposure control 2. Adjustment of the mA and/or kV according to patient size 3. Use of iterative reconstruction technique Electronically signed by: Ángel Lezama MD (01/19/2018 3:57 PM) [facility]
[2018-01-19] MEDS ORDERED: MAGNESIUM CITRATE 296 ML SOLUTION. PO ONE (18:15)
[2018-01-19] MEDS ORDERED: ONDANSETRON PF 4 MG/2 ML VIAL. IV PRN (18:15)
[2018-01-19 19:05] VITALS: BP 106/74
[2018-01-19] MEDS ORDERED: MULT-55 PO (19:34)
[2018-01-19] MEDS ORDERED: HYDR25TA PO (19:34)
[2018-01-19] MEDS ORDERED: hydrOXYzine HCL 25 MG TABLET PO PRN (21:00)
[2018-01-19] MEDS ORDERED: CALCIUM CARBONATE 500 MG TAB.CHEW PO PRN (21:00)
[2018-01-19] MEDS ORDERED: clonazePAM 1 MG TABLET PO PRN (21:15)
[2018-01-19] MEDS: HYDROmorphone PF 1 MG/ML DISP.SYRIN IV PRN (21:52)
[2018-01-19] MEDS: lamoTRIgine 100 MG TABLET. PO SCH (21:52)
[2018-01-19 22:45] VITALS: BP 102/62
[2018-01-20] MEDS: HYDROmorphone PF 1 MG/ML DISP.SYRIN IV PRN ×2 (01:29→05:30)
[2018-01-20 05:50] LABS: BASO # 0.1 x10^3/uL (0.0-0.2); BASO % 1 % (0-3); EOS # 0.4 x10^3/uL (0.0-0.7); EOS % 7 % (0-3); HEMOGLOBIN 11.8 g/dL (12.0-15.5); LYMPH # 2.7 x10^3/uL (1.0-4.8); LYMPH % 41 % (24-48); MEAN CORPUSCULAR HEMOGLOBIN 30 pg (25-35); MEAN CORPUSCULAR HGB CONC 33 g/dL (31-37); MEAN CORPUSCULAR VOLUME 92 fL (79-100); MONO # 0.5 x10^3/uL (0.0-1.1); MONO % 8 % (0-9); NEUT # 2.8 x10^3uL (1.8-7.7); NEUT % 44 % (31-73); PLATELET COUNT 314 x10^3/uL (140-400); RED BLOOD COUNT 3.92 x10^6/uL (3.50-5.40); RED CELL DISTRIBUTION WIDTH 14.5 % (11.5-14.5); WHITE BLOOD COUNT 6.4 x10^3/uL (4.0-11.0)
[2018-01-20 05:55] VITALS: BP 94/67
[2018-01-20 05:59] LABS: CALCIUM 8.8 mg/dL (8.5-10.1); CREATININE 0.8 mg/dL (0.6-1.0); GFR 77.9; POTASSIUM 4.3 mmol/L (3.5-5.1)
[2018-01-20] MEDS ORDERED: ASPIRIN ENTERIC COATED 325 MG TABLET.DR. PO SCH (08:00)
[2018-01-20] MEDS ORDERED: CYANOCOBALAMIN (VITAMIN B-12) 1,000 MCG TABLET. PO SCH (09:00)
[2018-01-20] MEDS ORDERED: VENLAFAXINE 50 MG TABLET. PO SCH (09:00)
[2018-01-20] MEDS ORDERED: MULTIVITAMIN WITH MINERALS PO SCH (09:00)
[2018-01-20] MEDS ORDERED: MULTIVITAMIN with MINERAL TABLET. PO SCH (09:00)
[2018-01-20] MEDS: lamoTRIgine 100 MG TABLET. PO SCH (09:01)
[2018-01-20] MEDS ORDERED: OXYC5CAP PO (10:26)
--- NOTE | 2018-01-20 10:48 | SSS ---
ADMIT DATE: HISTORY OF PRESENT ILLNESS: The patient is a 42-year-old female patient who apparently underwent laparoscopic cholecystectomy about a week ago and apparently was discharged with oxycodone 1-2 tablets every 4 hours. She took 2 tablets every 4 hours consistently and she apparently has not had any bowel movement since last Saturday, came to the Emergency Room complaining of abdominal pain, mostly in the right upper quadrant. The surgical report was about no complication. The patient has been taking oxycodone 5 mg at home. She ran out of her medication, she took 2 tablets at a time, and she also complained of back pain and aches and pains all over and she denied any nausea or vomiting. Denied any chills, rigors or fever. She was extensively investigated in the Emergency Room and has had, her white cell count was normal and her chemistry showed her liver enzymes were elevated; however, compared to the levels a week ago at [facility], they were normal. His serum lipase was normal. The imaging studies showed that the KUB showed no acute abdominal abnormalities detected. Her chest x-ray was unremarkable. CT scan of the abdomen and pelvis showed that the gallbladder is surgically absent. There is only minimal streaky increased density in the gallbladder fossa compatible with hemorrhage or edema on a postsurgical basis, no significant discrete fluid collection is seen. The liver is unremarkable. No pancreatic abnormality seen. The spleen is normal sized. No renal or adrenal abnormalities detected. There is minimal aortic calcific plaquing. No abdominal or pelvic adenopathy is seen. The uterus appears to be surgically absent. There are scattered colonic diverticula, most numerous in the sigmoid region, no pericolonic inflammatory process is seen. The appendix is visualized and shows no abnormality. The small bowel loops are not dilated. There is a moderate amount of retained fluid and food in the stomach, no free air or free fluid is seen or evident in the abdomen and pelvis, and the impression is that the patient has minimal postsurgical changes in the gallbladder fossa, moderate amount of retained fluid and food in the stomach and colonic diverticulosis. PHYSICAL EXAMINATION: GENERAL: On examining her, she looked well and was clearly in no apparent respiratory distress. She apparently was treated with, was given mag citrate and she had multiple bowel movements. On examining her this morning, she was resting slightly propped up in bed, in no apparent respiratory distress. No pallor, jaundice, cyanosis, or thyromegaly. No jugular venous distension. No lower limb edema. VITAL SIGNS: Her heart rate was 67, blood pressure was 94/67, temperature was 98.1, respiratory rate was 18, and oxygen saturation was 96%. HEENT: Examination of the head, eyes, ears, nose and throat showed normocephalic, atraumatic. NECK: Supple. HEART: Showed normal first and second heart sounds with no gallop, rub or murmur. CHEST: Clear to auscultation. No crepitation or rhonchi. ABDOMEN: Distended, soft, mild tenderness in the right upper quadrant. There is no guarding or rigidity. No organomegaly. Her hernial orifices are intact. Bowel sounds normal. NEUROLOGIC: She was awake, alert, responding appropriately. All cranial nerves are intact. EXTREMITIES: She moves extremities without difficulty. She ambulates without assistance or assistive devices. LABORATORY STUDIES: Her repeat lab work this morning showed a serum sodium 142, potassium 4.3, chloride 107, bicarbonate 30, anion gap of 5, BUN 11, creatinine 0.8, estimated GFR was 77 mL per minute. Her glucose was 98, calcium was 8.8, and serum lipase was less than 10. Her white cell count was 6400, hemoglobin was 11.8, hematocrit 36, MCV 92, and platelet count 314,000. DISCHARGE INSTRUCTIONS: The patient was discharged home to continue on her home medication. I did give her a prescription for oxycodone 5 mg immediate release, needs to take 1 every 6 hours as needed. I gave her 20 tablets and advised her to make an appointment to follow up with Dr. Montano. FINAL DISCHARGE DIAGNOSES: Abdominal pain post-cholecystectomy. Other medical problems include seizure disorder, transient ischemic attacks. The CT scan showed no evidence of any nephrolithiasis, no kidney stones, and migraine headache. LAVERNE PELAYO MD DR: ONUR/bisi JOB#: [id number] / [id number]
== END 2018-01-20 10:45 | disposition home or self-care (01) ==
LOC: ER 12:43 → INTOOBSV 16:00 → 1 SOUTH 16:00
PROVIDERS: ADMIT Neuromusculoskeletal Medicine & OMM; ATTEND Neuromusculoskeletal Medicine & OMM
DX: R10.9 Unspecified abdominal pain (principal); G40.909 Epilepsy, unspecified, not intractable, without status epilepticus; G45.9 Transient cerebral ischemic attack, unspecified; D68.51 Activated protein C resistance; K57.30 Diverticulosis of large intestine without perforation or abscess without bleeding; Z86.73 Personal history of transient ischemic attack (TIA), and cerebral infarction without residual deficits; Z87.442 Personal history of urinary calculi; Z90.49 Acquired absence of other specified parts of digestive tract; Z90.710 Acquired absence of both cervix and uterus
CPT/HCPCS: 36415; 71046; 74018; 74177; 80048; 80053; 83690; 85025; 96374; 96375; 96376; 99285; G0378; J1170; J1885; Q9967; G0379; J7030